=== PATIENT | female | born 1985 | race Caucasian/White ===

== ENCOUNTER 2021-06-02 13:06 | Outpatient (CLI) | payer SELFPAY ==
[2021-06-02 13:42] LABS: Basophils # 0.1 10^3/uL (0.0-0.1); Basophils % 0.7 %; Eosinophils # 0.2 10^3/uL (0.0-0.8); Eosinophils % 2.2 %; Hematocrit 35.7 % (37.0-47.0); Hemoglobin 10.3 g/dL (11.5-15.3); Lymphocytes # 2.1 10^3/uL (0.8-4.8); Lymphocytes % 29.2 %; Mean Corpuscular HGB Conc 28.9 g/dL (30.0-36.0); Mean Corpuscular Hemoglobin 24.9 pg (28.0-34.0); Mean Corpuscular Volume 86.2 fl (81-99); Mean Platelet Volume 9.6 fL (7.4-10.4); Monocytes # 0.3 10^3/uL (0.2-0.9); Monocytes % 4.5 %; Neutrophils # 4.54 10^3/uL (1.8-7.7); Neutrophils % 62.6 %; Nucleated Red Blood Cells % 0 %; Platelet Count 456 10^3/cmm (130-400); Red Blood Count 4.14 10^6/uL (4.1-5.3); Red Cell Distribution Width 17.2 % (12.1-15.1); White Blood Count 7.3 10^3/uL (4.0-10.0)
[2021-06-02 13:43] LABS: Reticulocyte % 1.7 % (0.5-2.0)
[2021-06-02 14:10] LABS: Alanine Aminotransferase 46 U/L (0-33); Albumin Level 4.4 g/dL (3.5-5.2); Alkaline Phosphatase 84 IU/L (35-105); Anion Gap 15.6 (5-19); Aspartate Amino Transferase 63 U/L (0-32); Blood Urea Nitrogen 7 mg/dL (6-20); Calcium 9.3 mg/dL (8.5-10.5); Carbon Dioxide 25 mmol/L (22-29); Chloride 101 mmol/L (98-107); Ferritin 21 ng/mL (15-150); Globulin 3.5 g/dL (1.3-4.6); Glomerular Filtration Rate 113.8 mL/min (90-130); Glucose 91 mg/dL (65-115); Iron 30 ug/dL (37-145); Osmolality Calculated 284 mOsm/kg (285-295); Potassium 3.6 mmol/L (3.5-5.1); Sodium 138 mmol/L (136-145); Total Bilirubin 0.5 mg/dL (0.15-1.2); Total Iron Binding Capacity 495 mcg/dl; Total Protein 7.9 g/dL (6.6-8.7); Unsaturated Iron Binding 465 ug/dL (112-347)
[2021-06-02 14:26] LABS: Vitamin B12 239 pg/mL (232-1245)
[2021-06-02 14:42] LABS: Folate Level 7.6 ng/mL (4.8-37.3)
[2021-06-02] MEDS: cyanocobalamin 1,000 mcg/mL SDV 1000 MCG SUBCUT (15:35)
--- NOTE | 2021-06-03 17:14 | ONC FU_ITS ---
Dr. Trujillo follow up note Patient: Johanny Meléndez Unit #: [id number]: 1985 Dicatated By: Alexander Trujillo M.D.Date of Visit:Jun 02, 2021 Onc Med Follow-up/Prog Note History of Present Illness: Ms. Johanny Meléndez, is a 35-year-old female with history of progressive generalized weakness and fatigue over the period of 6 months and eventually underwent evaluation by PMD and lab work-up done on April 21, 2021 showed white blood count 5.8 hemoglobin 9.1 hematocrit 31.6 platelets 372,000 with a normal differential anemia work-up including iron studies shows ferritin 8 ng/mL, iron saturation 3%, iron 17, TIBC 548, consistent with iron deficiency anemia, B12 level was 263 pg/mL. As per patient she was started on ferrous sulfate 325 mg p.o. daily, which she is tolerating well. She is also complaining of chronic diarrhea and early fullness due to that she lost some weight but denies any melena or hematochezia denies any hemoptysis or hematemesis, denies any jaundice, denies any night sweats, denies any recurrent fever as per patient her menses are very regular usually last 4 days a month. Denies any peripheral numbness Medications: ALPRAZolam 1 - 3 Tablet (of 0.25 mg) Oral daily PRN, Ferrous Sulfate 1 Tablet (of 325 (65 fe) mg) Oral daily, Venlafaxine HCl ER 1 Capsule (of 150 mg) Capsule SR 24 HR Oral daily, Vienva 1 Tablet (of 0.1-20 mg - mcg) Oral daily Allergies: No Known Allergies. Review of Systems: Review of Systems is not available for this patient. Vital Signs: Performed on Jun 02, 2021 14:30 Height - 67.00 in BP - 151/100 mm(hg) (HIGH) Performed on Jun 02, 2021 14:29 Height - 67 in Weight - 207.6 lbs (HIGH) BSA - 2.05 sq.m BMI - 32.51 (HIGH) Temperature - 96.3 F (LOW) Pulse - 93 /min Respiration - 16 /min BP - 164/106 mm(hg) (HIGH) O2 Sat - 99 % Pain - 0 Fatigue - 8 Performance Status: 0 - Fully active, able to carry on all predisease activities without restrictions. (ECOG) Physical Examination: ENMT - No mouth sores, no thrush, no jaundice, Respiratory - Lungs are clear to auscultation, Cardiovascular - Regular rate and rhythm of heart, Abdomen - Soft, bowel sounds present, Extremities - No visible edema. Lab/Imaging: Most recent lab results are not available for this patient. Impression: Iron deficiency anemia, etiology could be multifactorial including iron malabsorption or chronic blood loss, due to menstrual periods or chronic GI blood loss or nutritional as due to early fullness and chronic diarrhea. History of chronic diarrhea and dyspepsia Anxiety disorder Mild splenomegaly seen on CT scan of abdomen pelvis done on April 28, 2021, size was 14.9 cm Plan: Discussed with patient regarding her labs white blood count 7.3 hemoglobin 10.3 g compared to 9.1 g on April 21, 2021, hematocrit 35.7 platelets 456,000 CMP within normal limit except ALT 46 AST 63 and iron studies shows iron saturation 6%, iron 30, ferritin 21, TIBC 495, B12 239, reticulocyte count 1.7 compared to 3%, iron 17, ferritin 8, B12 263 on April 21, 2021 Clinically, patient is doing well with no new signs symptoms her follow-up CBC shows improvement in her iron deficiency while on oral iron, she is tolerating ferrous sulfate 325 mg p.o. daily well Etiology for her iron deficiency anemia could be multifactorial but most likely due to chronic blood loss probably due to moderately heavy menses other possibility could be chronic GI blood loss. At this point, we will recommend increasing ferrous sulfate dose to 2 tablets a day from 1 tablet a day. For better absorption she was advised to take it on empty stomach with orange juice. And we will refer her to gastroenterology for endoscopy evaluation to rule out chronic blood loss from GI tract and also to evaluate early fullness and chronic diarrhea. Her lab work-up shows B12 on the low side of normal range about 10% people with B12 level up to 400 may have hematological abnormality, will consider B12 supplement 1000 mcg IM weekly x4 days loading dose followed by monthly as maintenance. Mildly elevated transaminases, etiology unclear, will monitor She will return to clinic in 1 month with CBC,CMP, iron studies and B12 level, hopefully by that time she will have GI work-up completed too Mild splenomegaly seen on CT scan of abdomen pelvis done on April 28, 2021, could be incidental finding, will monitor and repeat sonogram or CT scan in 6 months with special attention to spleen. Signed By: Alexander Trujillo M.D. <<Signature on File>>
== END 2021-06-02 13:07 | disposition home or self-care (01) ==
PROVIDERS: PCP Family Medicine; Visit Provider Internal Medicine Hematology & Oncology
DX: D50.9 Iron deficiency anemia, unspecified (principal); F41.9 Anxiety disorder, unspecified; E53.8 Deficiency of other specified B group vitamins; R16.1 Splenomegaly, not elsewhere classified; R10.13 Epigastric pain; R19.7 Diarrhea, unspecified; Z79.899 Other long term (current) drug therapy
CPT/HCPCS: 36415; 80053; 82607; 82728; 82746; 83540; 83550; 85025; 85045; 96372; 99205; J3420

== ENCOUNTER 2021-06-08 13:53 | Outpatient (CLI) | payer SELFPAY ==
[2021-06-08] MEDS: cyanocobalamin 1,000 mcg/mL SDV 1000 MCG SUBCUT (14:35)
== END 2021-06-08 13:54 | disposition home or self-care (01) ==
LOC: ONCMED 13:56
PROVIDERS: PCP Family Medicine; Visit Provider Internal Medicine Hematology & Oncology
DX: E53.8 Deficiency of other specified B group vitamins (principal)
CPT/HCPCS: 96372; J3420

== ENCOUNTER 2021-06-26 16:50 | Emergency (ER) | payer SELFPAY ==
[2021-06-26 17:10] VITALS: BP 186/134; PULSE 95; RESP 16; TEMP 37; O2SAT 99; BMI 32.8
[2021-06-26 17:40] LABS: Basophils % 0.5 %; Eosinophils # 0.1 10^3/uL (0.0-0.8); Eosinophils % 1.6 %; Hematocrit 40.1 % (37.0-47.0); Hemoglobin 11.7 g/dL (11.5-15.3); Lymphocytes # 2.1 10^3/uL (0.8-4.8); Lymphocytes % 33.3 %; Mean Corpuscular HGB Conc 29.2 g/dL (30.0-36.0); Mean Corpuscular Hemoglobin 25.1 pg (28.0-34.0); Mean Corpuscular Volume 85.9 fl (81-99); Mean Platelet Volume 9.5 fL (7.4-10.4); Monocytes # 0.3 10^3/uL (0.2-0.9); Monocytes % 4.2 %; Neutrophils # 3.83 10^3/uL (1.8-7.7); Neutrophils % 60.1 %; Nucleated Red Blood Cells % 0 %; Platelet Count 388 10^3/cmm (130-400); Red Blood Count 4.67 10^6/uL (4.1-5.3); Red Cell Distribution Width 17.2 % (12.1-15.1); White Blood Count 6.4 10^3/uL (4.0-10.0)
[2021-06-26 17:43] VITALS: BP 200/136; PULSE 95; RESP 15; O2SAT 96
--- NOTE | 2021-06-26 17:44 | ED_ITS ---
HPI - General Adult General: Chief complaint: Extremity Injury, Upper Stated complaint: High bp, lft hand tingling, spots in vison Time Seen by Provider: 06/26/21 16:59 History of Present Illness: Patient is a 35-year-old female who presents the emergency room for evaluation of uncontrolled blood pressure. Patient says that at home she has been taking her blood pressure manually on both of her arms noticed that they have been consistently high in the last 4 days. Patient tells me that 3 weeks ago, she has had similarly elevated blood pressure across multiple days. Earlier today, patient ports mild chest pain lasting for few seconds with left arm numbness. Patient recently traveled home from [place] and has not been getting much sleep. Patient denies any history of smoking, any active or exertional chest pain or shortness of breath, pleuritic chest pain, or radiating chest pain towards the back. Patient denies any abdominal complaints, nausea/vomiting fever or chills. No other focal complaints. Patient also denies any focal neurological weakness, facial droop, slurring of speech, diplopia, amaurosis fugax, visual field deficit, or changes in her visions. Patient did report occasional transient spotters lasting for a few seconds in both of her eyes but denies any blurriness of vision over the last 4 days. Patient denies any eye pain, curtain fall sensation in the eyes, or persistent spotters. Onset: 30 minutes again of chest pain and L arm numbness Duration:10 minutes Location:home Severity:moderate Associated symptoms: Deny chest pain, dyspnea, nausea, rash, palpitations or vomiting Review of Systems Const: Denies: fever(s) or chills Eyes: Reports: other (+eye spotters); Denies: change in vision ENMT: Denies: mouth pain Card: Denies: chest pain or palpitations Resp: Denies: dyspnea or non-productive cough GI: Denies: abdominal pain, nausea, vomiting or diarrhea : Denies: dysuria Musc: Denies: extremity pain Skin/Breast: Denies: rash or new lesions Neuro: Denies: weakness in extremities Psych: Reports: other (Normal mood) Douglas/Lymph: Denies: easy bruising PFS ED PFSH: Medical History (Updated 06/26/21 @ 17:52 by Harjinder Liu MD) Hypertension Social History (Updated 06/26/21 @ 17:52 by Harjinder Liu MD) Smoking and tobacco status: never smoked Alcohol intake: never Substance/Drug Use: never Physical Exam Const: COMMON NORMALS: alert HENMT: COMMON NORMALS: atraumatic HEAD & SCALP: atraumatic MOUTH: moist mucous membranes not abnormal Eye: COMMON NORMALS: EOMs intact bilaterally and conjunctivae normal CONJUNCTIVA: Yes conjunctivae normal Neck/C-Spine: COMMON NORMALS: full ROM and supple Resp: COMMON NORMALS: normal respiratory effort and clear to auscultation bilaterally AUSCULTATION: clear to auscultation bilaterally Cardio: COMMON NORMALS: regular rate RATE: regular rate OTHER: 2+ radial pulses b/l GI: COMMON NORMALS: Soft to palpation and non-tender PALPATION: Yes Soft to palpation Extremity: COMMON NORMALS: full ROM Neuro: SENSORIUM/ORIENTATION: Yes alert MOTOR EXAM: No Abnormal motor strength present and Other motor observations present (no focal motor deficits) OTHER: Mental status? Awake, alert, and oriented to self, year, month, location, and situation.? Following simple axial and appendicular commands.? Has appropriate fund of knowledge, comprehension, and insight.? Able to recall and understands pertinent aspects of medical history and current treatment status.? ? Language? Speech is fluent without word-finding difficulties.? Intact naming, expression, spa receptionist, and repetition.? ? Cranial nerves? 2,3,4,6: PERRL, EOMI with no nystagmus. Unable to assess visual acuity since patient forgot to bring her glasses and was uanble to perform the pinhole exam 5: Intact sensation to light touch, symmetric? 7: Smile symmetrical, no facial droop.? 8: Hearing grossly intact.? 9,10: Normal palate movement.? 11: Normal strength in trapezius bilaterally 12: Tongue protrudes midline.? ? Motor examination? Normal bulk & tone. Strength as follows (R/L): Delts (5/5), Biceps (5/5), Triceps (5/5), Wrist ext (5/5), hip flexors (5/5), plantarflexors (5/5), dorsiflexors (5/5). ? Sensation? Light Touch: Grossly intact and equal in upper and lower extremities bilaterally? Romberg: Negative.? Distal joint position sense intact ? Coordination? [id number]-finger movements intact without dysmetria or past-pointing.? Rapid fingertaps: preserved amplitude without decriment.? No tremor, myoclonus or truncal ataxia.? ? Gait/stance? Steady, normal narrow base gait with appropriate arm swing and turning.? Psych: COMMON NORMALS: speech normal SPEECH: Yes normal speech MOOD & AFFECT: Yes euthymic mood Course Vital Signs: Vital signs: Vital Signs Temperature 98.6 F 06/26/21 17:10 Pulse Rate 89 06/26/21 19:46 Respiratory Rate 17 06/26/21 19:46 Blood Pressure 175/113 06/26/21 19:46 Pulse Oximetry 99 06/26/21 19:46 MDM - General Adult Medical Decision Making 35-year-old female with history of hypertension presenting to the emergency room with complaints of chest pain and left arm numbness lasting for 10 minutes. Patient's reports sharp pain. On exam, patient is 2+ radial pulse, did not have any persistent pain. X-ray chest did not show any focal finding. EKG is nonischemic. Initial blood pressure was noted to be elevated with diastolic greater than 135. Patient received 10 mg of amlodipine. Patient did not have any active chest pain in the emergency room. Cr WNL. I performed a bedside ultrasound which did not show any signs of retinal detachment or vitreous hemorrhage/detachment. EKG and troponin x2 with delta less than 5. Patient's blood pressure improved with amlodipine. Given the fact the patient did not have any chest pressure with transient single episode sharp chest pain with arm numbness, do not suspect ACS. In addition, I have no suspicion for dissection given normal x-ray, 2+ radial pulses bilaterally, or tearing chest pain. Given the fact the patient has no retinal detachment on bedsulse, do not suspect acute occular pathologies currently. If patient has persistence in spots/curtain fall sensation/monocular blindeness, patient agrees to follow closely for a reassessment. Patient is given strict precaution for any signs of amaurosis fugax, retinal detachment, or any other concerns for visual changes. Patient to follow-up with primary care provider for further evaluation of her blood pressure and further adjustment. Rx amlodipine 5mg daily for elevated BP Disposition: Discharge. Patient counseled regarding diagnostic impression, treatment plan. Patient given ED strict return precautions to return for cont inuation, worsening, or development of new symptoms. Instructed to f/u w/ PCP regarding symptoms today. Patient verbalized understanding. Lab Data : 06/26/21 17:36 06/26/21 17:36 Laboratory Results WBC 6.4 10^3/uL (4.0-10.0) 06/26/21 17:36 RBC 4.67 10^6/uL (4.1-5.3) 06/26/21 17:36 Hgb 11.7 g/dL (11.5-15.3) 06/26/21 17:36 Hct 40.1 % (37.0-47.0) 06/26/21 17:36 MCV 85.9 fl (81-99) 06/26/21 17: MCH 25.1 pg (28.0-34.0) L 06/26/21 17:36 MCHC 29.2 g/dL (30.0-36.0) L 06/26/21 17: RDW 17.2 % (12.1-15.1) H 06/26/21 17:36 Plt Count 388 10^3/cmm (130-400) 06/26/21 17:36 MPV 9.5 fL (7.4-10.4) 06/26/21 17:36 Neut % (Auto) 60.1 % 06/26/21 17:36 Lymph % (Auto) 33.3 % 06/26/21 17:36 [place] % (Auto) 4.2 % 06/26/21 17:36 Eos % (Auto) 1.6 % 06/26/21 17:36 Baso % (Auto) 0.5 % 06/26/21 17:36 Neut # (Auto) 3.83 10^3/uL (1.8-7.7) 06/26/21 17:36 Lymph # (Auto) 2.1 10^3/uL (0.8-4.8) 06/26/21 17:36 [place] # (Auto) 0.3 10^3/uL (0.2-0.9) 06/26/21 17:36 Eos # (Auto) 0.1 10^3/uL (0.0-0.8) 06/26/21 17:36 Baso # (Auto) 0.0 10^3/uL (0.0-0.1) 06/26/21 17:36 Nucleated RBC % (auto) 0 % 06/26/21 17:36 Nucleated RBCs # 0.0 /100WBC 06/26/21 17:36 Sodium 138 mmol/L (136-145) 06/26/21 17:36 Potassium 3.7 mmol/L (3.5-5.1) 06/26/21 17:36 Chloride 101 mmol/L (98-107) 06/26/21 17:36 Carbon Dioxide 22 mmol/L (22-29) 06/26/21 17:36 Anion Gap 18.7 (5-19) 06/26/21 17:36 BUN 5 mg/dL (6-20) L 06/26/21 17:36 Creatinine 0.6 mg/dL (0.5-0.9) 06/26/21 17:36 GFR Calculation 113.8 mL/min (90-130) 06/26/21 17:36 Glucose 87 mg/dL (65-115) 06/26/21 17:36 Calculated Osmolality 283 mOsm/kg (285-295) L 06/26/21 17:36 Calcium 9.8 mg/dL (8.5-10.5) 06/26/21 17:36 Troponin T Baseline 6 ng/L (0-10) 06/26/21 17:36 Troponin T 120 Minute 6.00 ng/L (0-10) 06/26/21 19:20 Delta Troponin T Not Reportable 06/26/21 19:20 Discharge Plan Discharge Patient Disposition: Home Clinical Impression: Elevated blood pressure reading Condition: Stable Prescriptions: New amlodipine 5 mg tablet 5 mg PO DAILY 20 Days Qty: 20 0RF No Action alprazolam 0.25 mg tablet 0.25 mg PO PRN PRN (Reason: Anxiety) 0RF venlafaxine 150 mg capsule,extended release 24hr 150 mg PO DAILY 0RF levonorgestrel-ethinyl estrad [Vienva] 0.1-20 mg-mcg tablet 1 tab PO DAILY 0RF ferrous sulfate 325 mg (65 mg iron) Tablet 325 mg PO BID 0RF Discharge Orders: Discharge ED (Routine); Ordered 06/26/21 Ordered By: Harjinder Liu Referrals: Karl Harris DO [Primary Care Provider] - Discharge Diet: Advance as tolerated Discharge Activity: Increase activity as tolerated Patient Instructions: Hypertension (ED) Activity Restrictions/Additional Instructions: You need to follow-up with your primary care provider for further adjustment of your blood pressure. Your blood pressure puts you at risk for developing strokes and heart attack. Therefore it is very important for you to follow-up with this number to see if the numbers improve gradually. Because blood pressure adjustment is a gradual process, were not able to change it in 1 visit. Therefore please log your blood pressure and follow-up with your primary care provider in the next 72 hours for further adjustment of your blood pressures. Coding Level of Care Code ED Travel Registered Nurse Icu for [employer] Fwd Exam Comprehensive
--- NOTE | 2021-06-26 17:45 | ECG_ITS ---
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 Measurements Intervals Turner Rate: 78 P: 8 IN: 130 QRS: -6 QRSD: 88 T: 14 QT: 391 QTc: 447 Interpretive Statements SINUS RHYTHM VOLTAGE CRITERIA FOR LVH [MEETS CRITERIA IN ONE OF: R(aVL), S(V1), R(V5), R(V5/V6)+S(V1)] No previous ECG available for comparison Electronically Signed On 06-27-2021 9:05:52 CDT by Mike Arias M.D. [email or web address] [email or web address] [email or web address]/[email or web address]/NU/[id number] f
[2021-06-26] MEDS: amlodipine 10 mg Tablet PO (17:54)
[2021-06-26 18:04] LABS: Anion Gap 18.7 (5-19); Blood Urea Nitrogen 5 mg/dL (6-20); Calcium 9.8 mg/dL (8.5-10.5); Carbon Dioxide 22 mmol/L (22-29); Chloride 101 mmol/L (98-107); Glomerular Filtration Rate 113.8 mL/min (90-130); Glucose 87 mg/dL (65-115); Osmolality Calculated 283 mOsm/kg (285-295); Potassium 3.7 mmol/L (3.5-5.1); Sodium 138 mmol/L (136-145)
[2021-06-26 18:05] LABS: Troponin(5th) Baseline 6 ng/L (0-10)
[2021-06-26 19:46] VITALS: BP 175/113; PULSE 89; RESP 17; O2SAT 99
== END 2021-06-26 20:16 | disposition home or self-care (01) ==
PROVIDERS: Emergency Provider Emergency Medicine; PCP Family Medicine
DX: I10 Essential (primary) hypertension (principal)
CPT/HCPCS: 36415; 80048; 84484; 85025; 93005; 99283

== ENCOUNTER 2021-08-06 06:32 | Day surgery (SDC) | payer SELFPAY ==
[2021-08-03 10:45] VITALS: BMI 32.8
[2021-08-06 06:45] VITALS: BP 138/99; PULSE 110; RESP 18; TEMP 36.6; O2SAT 100
[2021-08-06] MEDS: sodium chloride 0.9% 1,000 ML 30 ML IV (06:58)
--- NOTE | 2021-08-06 07:08 | ANES.PREANE2 ---
Pre-Anesthetic Assessment Height/Weight: Height 1.7 m Weight 95.254 kg Temp Pulse Resp BP Pulse Ox 97.8 F 110 H 18 138/99 100 08/06/21 06:45 08/06/21 06:45 08/06/21 06:45 08/06/21 06:45 08/06/21 06:45 Preop Diagnosis: Bleeding per rectum Operation Date: 08/06/21 08:00 Proposed Procedures p EGD [id number]/[id number](Not Applicable) - Zhang Mendoza MD s Colonoscopy(Not Applicable) - Zhang Mendoza MD Was Beta Maria R taken within 24 hours: Yes Was Clonidine taken within 24 hours: N/A Last intake: Intake Last Liquid Date 08/05/21 Last Liquid Time 22:00 Last Solid Date 08/04/21 Last Solid Time 23:00 Social No alcohol and No tobacco Exam alert, oriented x 3, clear to auscultation bilaterally and regular rate & rhythm Airway Submandibular: within normal limits Cervical ROM: within normal limits Mallampati: Class II Dentition: full History/ROS No significant history except as noted and No significant complaints Pulmonary None reported CV/HEM Hypertension None reported Hepatic None reported GI None reported Metabolic None reported Musc/skel None reported Neuropsych Anxiety Anesthetic Plan ASA status: 2 Anesthesia: Anesthesia Evaluation and MAC Risk of > 500 ml blood loss (7ml/kg in children): No Medications/Allergies Home Medications Medication Instructions Recorded Confirmed Last Taken Type alprazolam 0.25 mg tablet 0.25 mg PO PRN PRN 06/25/21 08/06/21 08/06/21 05:30 History levonorgestrel-ethinyl estradiol 1 tab PO DAILY 06/25/21 08/06/21 08/05/21 History 0.1 mg-20 mcg tablet (Vienva) venlafaxine 150 mg 150 mg PO DAILY 06/25/21 08/06/21 08/05/21 History capsule,extended release 24 hr ferrous sulfate 325 mg (65 mg 325 mg PO BID 06/26/21 08/06/21 08/05/21 History iron) tablet Allergies Allergy/AdvReac Type Severity Reaction Status Date / Time No Known Allergies Allergy Verified 08/03/21 10:42 Current Medications Generic Name Dose Route Start Last Admin Trade Name Freq PRN Reason Stop Dose Admin Sodium Chloride 1,000 mls @ 30 mls/hr 08/06/21 06:45 08/06/21 06:58 Sodium Chloride 0.9% IV 08/07/21 06:44 30 mls/hr .Q24H CEDRIC Administration PFSH Anesthesia Medical History (Updated 07/04/21 @ 00:00 by ) Hypertension Social History (Updated 06/26/21 @ 17:52 by Harjinder Liu MD) Smoking and tobacco status: never smoked Alcohol intake: never Female Reproductive History Date of last menstrual period: 07/28/21 Data Anesthesia Cardiac Studies: No Data to Display
[2021-08-06 07:13] LABS: OR HCG Qualitative Urine Negative (Negative)
--- NOTE | 2021-08-06 08:49 | W.PM.OPSFHP ---
Same Day Surgery H&P Indication for Procedure/HPI DATE OF PROCEDURE: August 06, 2021 CHIEF COMPLAINT/INDICATIONFOR SURGICAL PROCEDURE: Bleeding per rectum PREOP DIAGNOSIS: Bleeding per rectum PLANNED PROCEDURE: Operation Date: 08/06/21 08:00 Proposed Procedures p EGD 41689/d50.9/[id number](Not Applicable) - Zhang Mendoza MD s Colonoscopy(Not Applicable) - Zhang Mendoza MD 06/25/2021 this is a pleasant 35 years old female patient has been having progressive generalized weakness and fatigue over the.? Of 6 months or so patient was found to have a hemoglobin of 9.1, hematocrit 31.6 and platelet count 3 72,000.? And patient was diagnosed ultimately with iron deficiency anemia.? Could be attributed to chronic GI blood loss, patient denies heavy menses and has been having some blood in stool she is considering that could be related to her hemorrhoids.? Patient was referred to my practice for further evaluation for diagnostic EGD and colonoscopy.? Per Dr. Trujillo's note patient undergone a CT scan of the abdomen pelvis back in April 2021 and showed mild splenomegaly. The patient describes change in bowel habits more towards diarrhea yet alternating with constipation 08/06/2021 Patient comes today for diagnostic EGD and colonoscopy ROS All systems have been reviewed negative except as for the above or per problem list. Medications/Allergies* Home Medications Medication Instructions Recorded Confirmed Type alprazolam 0.25 mg tablet 0.25 mg PO PRN PRN 06/25/21 08/06/21 History levonorgestrel-ethinyl estradiol 1 tab PO DAILY 06/25/21 08/06/21 History 0.1 mg-20 mcg tablet (Vienva) venlafaxine 150 mg 150 mg PO DAILY 06/25/21 08/06/21 History capsule,extended release 24 hr ferrous sulfate 325 mg (65 mg 325 mg PO BID 06/26/21 08/06/21 History iron) tablet Allergies/Adverse Reactions Allergy/AdvReac Type Severity Reaction Status Date / Time No Known Allergies Allergy Verified 08/06/21 08:50 Current Medications: Generic Name Dose Route Start Last Admin Trade Name Freq PRN Reason Stop Dose Admin Sodium Chloride 1,000 mls @ 30 mls/hr 08/06/21 06:45 08/06/21 06:58 Sodium Chloride 0.9% IV 08/07/21 06:44 30 mls/hr .Q24H CEDRIC Administration Pertinent History/Comorbid Conditions* Medical History (Updated 07/04/21 @ 00:00 by ) Hypertension Social History Smoking and tobacco status: never smoked Alcohol intake: never Pertinent Exam Findings alert, oriented x 3, regular rate & rhythm and procedure specific exam findings (Abdominal examination nontender nondistended soft) Recommendations Surgery/Procedure today (Diagnostic EGD and colonoscopy) Coding Level of Care Code Acute Project Development Director for g Dipak
[2021-08-06 09:21] VITALS: BP 104/76; PULSE 75; RESP 20; TEMP 36.6; O2SAT 99
[2021-08-06 09:31] VITALS: BP 122/89; PULSE 104; RESP 18; O2SAT 98
[2021-08-06 09:42] VITALS: BP 93/71; PULSE 94; RESP 18; O2SAT 94
== END 2021-08-06 10:11 | disposition home or self-care (01) ==
PROVIDERS: Anesthesiology; PCP Family Medicine; Visit Provider Surgery
PROC: 0DJ08ZZ Inspection of Upper Intestinal Tract, Via Natural or Artificial Opening Endoscopic (ICD-10-PCS; CPT 43235; principal; 2021-08-06 08:00)
PROC: 0DJD8ZZ Inspection of Lower Intestinal Tract, Via Natural or Artificial Opening Endoscopic (ICD-10-PCS; CPT 45378; 2021-08-06 08:00)
DX: K62.5 Hemorrhage of anus and rectum (principal); I10 Essential (primary) hypertension; K29.70 Gastritis, unspecified, without bleeding
CPT/HCPCS: 43235; 45378; 82274; 83630; 84703; 87493; 87506; J2704; J7030

== ENCOUNTER → 2021-12-31 17:13 | Outpatient (BNVA) | payer SELFPAY | PROVIDERS: PCP Family Medicine; Visit Provider Family Medicine | DX: N39.0 Urinary tract infection, site not specified (principal) | CPT/HCPCS: 81000; 87077; 87086; 87184 ==

== ENCOUNTER 2022-09-20 08:00 | Emergency (ER) | payer SELFPAY ==
[2022-09-20 08:08] VITALS: BP 182/113; PULSE 98; RESP 16; TEMP 37.3; O2SAT 99
--- NOTE | 2022-09-20 08:12 | W.ED.BACK ---
HPI - Back Pain/Injury General: Chief Complaint: Back Pain/Injury Stated Complaint: Lower back injury Time Seen by Provider: 09/20/22 08:12 History of Present Illness: Patient is a 36-year-old female comes to the ED with low back pain. Approximately 9 days ago patient was in her hammock swing at home and it fell. She landed on her low back and tailbone area. She has been having pain in that area that is gotten worse over the past 9 days. She went and saw her chiropractor last week and he did some manipulations and it did not help. She rates her pain currently a 7 out of 10 pain is located lower back and tailbone region and pain radiates down the right thigh. Denies any cauda equina symptoms. Over the past couple days patient does state that she feels like she has to urinate more frequently but then does not actually urinate much. Associated symptoms: Deny abdominal pain, chills, dysuria, fatigue, fever(s), hematuria, nausea or vomiting Review of Systems Const: Denies: fever(s), chills or fatigue Eyes: Denies: change in vision or eye discomfort ENMT: Denies: throat pain, odynophagia, nasal discharge or nasal congestion Card: Denies: chest pain, palpitations, edema, swelling of feet/ankles, dyspnea on exertion or orthopnea Resp: Denies: dyspnea, productive cough or non-productive cough GI: Denies: abdominal pain, nausea, vomiting, diarrhea, constipation or hematochezia : Reports: urinary frequency; Denies: flank pain, dysuria or hematuria Musc: Reports: back pain; Denies: neck pain or extremity swelling Skin/Breast: Denies: rash or new lesions Neuro: Denies: headache(s), numbness in extremities or weakness in extremities PFS ED PFSH: Medical History Hypertension Social History Smoking and tobacco status: never smoked Alcohol intake: never Substance/Drug Use: never Physical Exam Const: COMMON NORMALS: patient oriented x3 HENMT: COMMON NORMALS: normocephalic HEAD & SCALP: normocephalic MOUTH: Normal oral and palatal mucosa present THROAT: posterior oropharynx normal and uvula midline Neck/C-Spine: COMMON NORMALS: supple GENERAL: Yes normal visual inspection Resp: COMMON NORMALS: normal respiratory effort, No retractions, No use of accessory muscles and clear to auscultation bilaterally AUSCULTATION: clear to auscultation bilaterally Cardio: COMMON NORMALS: regular rate, regular rhythm, S1 normal heart sound present, S2 normal heart sound present, No gallops present (Cardio), No clicks present (Cardio), No murmurs present (Cardio) and Peripheral pulses 2+ throughout RATE: regular rate RHYTHM: regular rhythm HEART SOUNDS: S1 normal heart sound present and S2 normal heart sound present PERIPHERAL PULSES: Peripheral pulses 2+ throughout GI: COMMON NORMALS: Normal to inspection, nondistended, normoactive bowel sounds present, Soft to palpation, non-tender and no masses PALPATION: Yes Soft to palpation : COMMON NORMALS: Yes no CVA tenderness BLADDER/KIDNEY EXAM: Yes no CVA tenderness Back/Pelvis: COMMON NORMALS: no CVA tenderness LUMBAR SPINE/LOWER BACK: Yes lumbar spinal tenderness Lumbar spinal tenderness location: L4 and L5 and Yes paraspinal muscle tenderness Lumbar paraspinal muscle tenderness: bilateral Extremity: COMMON NORMALS: normal to inspection Neuro: COMMON NORMALS: patient oriented x3 GAIT: Yes Normal gait present Skin: GENERAL SKIN EXAM: dry skin Course Vital Signs: Vital signs: Vital Signs Temperature 99.1 F 09/20/22 08:08 Pulse Rate 75 09/20/22 10:17 Respiratory Rate 16 09/20/22 08:08 Blood Pressure 135/97 09/20/22 10:17 Pulse Oximetry 97 09/20/22 10:17 Oxygen Delivery Me thod Room Air 09/20/22 09:13 MDM - Back Pain/Injury Medical Decision Making Patient is a 36-year-old female comes to the ED with low back pain. Approximately 9 days ago patient was in her hammock swing at home and it fell. She landed on her low back and tailbone area. She has been having pain in that area that is gotten worse over the past 9 days. She went and saw her chiropractor last week and he did some manipulations and it did not help. She rates her pain currently a 7 out of 10 pain is located lower back and tailbone region and pain radiates down the right thigh. Denies any cauda equina symptoms. Over the past couple days patient does state that she feels like she has to urinate more frequently but then does not actually urinate much. Vitals are stable. UA shows signs of UTI. Sacrum and coccyx x-ray showed no acute fractures. Lumbar spine x-rays show some disc narrowing at L5-S1. She was given a dose of pain med, steroid and muscle relaxer here in the ED. She was stable for discharge home and diagnosed with lumbar radiculopathy and UTI. She was sent home with a prescription for an antibiotic, NSAID, muscle relaxer and steroid Dosepak. Told to follow-up with her PCP in the next week for reevaluation. Return ED precautions given. Patient understood and agreed with plan. Labs Radiology Impressions Lumbar Spine X-Ray 09/20/22 08:34 IMPRESSION: Disc narrowing at L5-S1 as noted. Sacrum and Coccyx X-Ray 09/20/22 08:34 IMPRESSION: No acute change. Laboratory Results Urine Color Yellow (Yellow) 09/20/22 09:11 Urine Appearance Cloudy (CLEAR) A 09/20/22 09:11 Urine pH 6.5 (5-7) 09/20/22 09:11 Ur Specific [place] 1.015 (1.005-1.030) 09/20/22 09:11 Urine Protein Trace (Negative) 09/20/22 09:11 Urine Glucose (UA) Norm (Normal) 09/20/22 09:11 Urine Ketones 1+ (Negative) H 09/20/22 09:11 Urine Blood 2+ (Negative) H 09/20/22 09:11 Urine Nitrate Negative (Negative) 09/20/22 09:11 Urine Bilirubin Neg (Negative) 09/20/22 09:11 Urine Urobilinogen 1 mg/dL (Negative) H 09/20/22 09:11 Ur Leukocyte Esterase 2+ (Negative) H 09/20/22 09:11 Urine RBC 0-4 /hpf (0-2) H 09/20/22 09:11 Urine WBC 25-40 /hpf (0-5) H 09/20/22 09:11 Ur Squamous Epith Cells Too numerous to cnt /hpf (0-5) H 09/20/22 09:11 Amorphous Sediment Not Reportable 09/20/22 09:11 Urine Bacteria 3+ /hpf (NONE) H 09/20/22 09:11 Urine Mucus Trace /hpf 09/20/22 09:11 Discharge Plan Discharge Patient Disposition: Home Clinical Impression: Lumbar radiculopathy UTI (urinary tract infection) Qualifiers: Urinary tract infection type: acute cystitis Hematuria presence: with hematuria Qualified Code(s): N30.01 - Acute cystitis with hematuria Condition: Stable Prescriptions: New Medrol (Melecio) 4 mg tablets,dose pack See Rx Instructions .ROUTE .COMPLEX Qty: 21 0RF Rx Instructions: orally per package directions Naprosyn 500 mg tablet 500 mg PO BID PRN (Reason: pain) Qty: 20 0RF cyclobenzaprine 10 mg tablet 10 mg PO BID PRN (Reason: muscle spasm) Qty: 20 0RF Bactrim DS 800-160 mg tablet 1 tab PO BID 3 Days Qty: 6 0RF No Action alprazolam 0.25 mg tablet 0.25 mg PO TID PRN (Reason: Anxiety) Qty: 90 5RF venlafaxine 150 mg capsule,extended release 24hr 150 mg PO DAILY Qty: 90 1RF amlodipine 5 mg tablet 5 mg PO DAILY 90 Days Qty: 90 3RF losartan 25 mg tablet 25 mg PO DAILY Qty: 90 3RF Slynd 4 mg (28) Tablet 1 tab PO DAILY Discharge Orders: Discharge ED (Routine); Ordered 09/20/22 Ordered By: Moshe Schulte Referrals: Karl Harris, [Primary Care Provider] - Discharge Diet: Regular Discharge Activity: Increase activity as tolerated Patient Instructions: Lumbar Radiculopathy (ED) Activity Restrictions/Additional Instructions: Follow-up with medical provider as directed. Take medications as prescribed. Return to the ER or your medical provider if condition worsens. Please read and understand discharge instructions. Thank you for choosing [facility] for your healthcare needs today. Please realize this is an emergency room and that we are providing you with a medical screening exam and this may not be complete and all inclusive of all the testing and or work up that you may need to determine your ailment or severity of your illness. It is very important that you follow up as instructed or that you return to the Emergency Department should you have concerns or if your condition changes or worsens in any way. Coding Level of Care Code ED Reflector Driller And Deburrer for Antoine Quesada
--- NOTE | 2022-09-20 08:34 | XR_ITS ---
WS: [id number] EXAMINATION: XR lumbar spine 2-3V* [id number] L-SPINE : 3 views REASON FOR EXAM: fall injury with lumbar pain COMPARISON: None available. ORDER DATE: 09/20/2022 8:41 AM FINDINGS: The lumbar vertebral bodies and the disc spaces are normal in width except for 50% narrowing of the L 5-S1 disc space. In the lumbar vertebra, there is no evidence of compression deformities or spondylo listhesis. Previous cholecystectomy. XR/XR lumbar spine 2-3V* [id number] IMPRESSION: Disc narrowing at L5-S1 as noted.
--- NOTE | 2022-09-20 08:34 | XR_ITS ---
WS: [id number] EXAMINATION: XR sacrum coccyx min 2V 78712 REASON FOR EXAM: fall injury with tail bone pain ORDER DATE: 09/20/2022 8:41 AM FINDINGS:: There is no evidence of acute fracture or displacement of the sacrum or coccygeal structur es. XR/XR sacrum coccyx min 2V [id number] IMPRESSION: No acute change.
[2022-09-20] MEDS: dexamethasone 10 mg/mL INJ IM (08:43)
[2022-09-20] MEDS: ketorolac 60 mg/2 mL INJ IM (08:43)
[2022-09-20] MEDS: methocarbamol 750 mg Tablet PO (08:43)
[2022-09-20 09:13] VITALS: BP 141/95; PULSE 78; O2SAT 97
[2022-09-20 09:42] LABS: Bilirubin Urine Neg (Negative); Blood Urine 2+ (Negative); Glucose Urine UA Norm (Normal); Ketones Urine 1+ (Negative); Nitrate Urine Negative (Negative); Protein Urine Trace (Negative); Specific Gravity, Urine 1.015 (1.005-1.030); Urine Appearance Cloudy (CLEAR); Urine Color Yellow (Yellow); pH Urine 6.5 (5-7)
[2022-09-20 09:43] LABS: Add Urine Culture? No; Add Urine Microscopic? YES; Bacteria Urine 3+ /hpf; Leukocyte Esterase Urine 2+ (Negative); Mucus Urine TRACE /hpf; RBC Urine 0-4 /hpf (0-2); Squamous Epithelial Cell Urine TOO NUMEROUS TO CNT /hpf (0-5); Urobilinogen Urine 1 mg/dL (Negative); WBC Urine 25-40 /hpf (0-5)
[2022-09-20] MEDS: HYDROcodone-acetaminophen 7.5-325 mg Tablet 1 TAB PO (10:01)
[2022-09-20 10:17] VITALS: BP 135/97; PULSE 75; O2SAT 97
== END 2022-09-20 10:18 | disposition home or self-care (01) ==
PROVIDERS: Emergency Provider Physician Assistant; PCP Family Medicine
DX: M54.16 Radiculopathy, lumbar region (principal); N30.01 Acute cystitis with hematuria
CPT/HCPCS: 72100; 72220; 81001; 96372; 99284; J1100; J1885

== ENCOUNTER → 2022-12-21 08:50 | Outpatient (BNVA) | payer SELFPAY | PROVIDERS: PCP Family Medicine; Visit Provider Family Medicine | DX: D50.9 Iron deficiency anemia, unspecified (principal); K62.5 Hemorrhage of anus and rectum; R40.0 Somnolence; E03.9 Hypothyroidism, unspecified; M54.9 Dorsalgia, unspecified | CPT/HCPCS: 80053; 82607; 84443; 85025 ==

== ENCOUNTER → 2023-09-14 08:04 | Outpatient (BNVA) | payer BC, SELFPAY | PROVIDERS: PCP Family Medicine; Visit Provider Nurse Practitioner Women's Health | DX: N92.6 Irregular menstruation, unspecified (principal); Z34.90 Encounter for supervision of normal pregnancy, unspecified, unspecified trimester | CPT/HCPCS: 81025; 83036; 84439; 84443; 84702; 86850; 86900 ==

== ENCOUNTER → 2023-09-21 10:17 | Outpatient (BNVA) | payer BC, SELFPAY | PROVIDERS: PCP Family Medicine; Visit Provider Nurse Practitioner Women's Health | DX: Z34.90 Encounter for supervision of normal pregnancy, unspecified, unspecified trimester (principal) | CPT/HCPCS: 76801 ==

== ENCOUNTER → 2023-09-27 07:52 | Outpatient (BNVA) | payer BC, SELFPAY | PROVIDERS: PCP Family Medicine; Visit Provider Nurse Practitioner Women's Health | DX: Z34.90 Encounter for supervision of normal pregnancy, unspecified, unspecified trimester (principal) | CPT/HCPCS: 80053; 80307; 82950; 84315; 85025; 86592; 86762; 86803; 86850; 86900; 87086; 87340; 87806 ==

== ENCOUNTER → 2023-09-30 08:05 | Outpatient (BNVA) | payer BC, SELFPAY | PROVIDERS: PCP Family Medicine; Visit Provider Obstetrics & Gynecology | DX: Z34.90 Encounter for supervision of normal pregnancy, unspecified, unspecified trimester (principal) | CPT/HCPCS: 82951; 82952; 84315; 87491; 87591; 87624 ==

== ENCOUNTER → 2023-11-01 08:07 | Outpatient (BNVA) | payer BC, SELFPAY | PROVIDERS: PCP Family Medicine; Visit Provider Nurse Practitioner Women's Health | DX: Z34.90 Encounter for supervision of normal pregnancy, unspecified, unspecified trimester (principal); O09.899 Supervision of other high risk pregnancies, unspecified trimester; O99.280 Endocrine, nutritional and metabolic diseases complicating pregnancy, unspecified trimester; E03.9 Hypothyroidism, unspecified | CPT/HCPCS: 82105; 84315; 84443 ==

== ENCOUNTER 2023-11-11 07:47 | Outpatient (CLI) | payer BC, SELFPAY ==
[2023-11-11 09:13] LABS: Total Volume, Urine 1800 mL
[2023-11-11 09:27] LABS: Urine Total Protein 5.9 mg/dL (0-150); Urine Total Protein 24 Hour 106.2 mg/24hr (0-150)
== END 2023-11-11 07:48 | disposition home or self-care (01) ==
PROVIDERS: Nurse Practitioner Women's Health; PCP Family Medicine; Visit Provider Internal Medicine
DX: I15.9 Secondary hypertension, unspecified (principal)
CPT/HCPCS: 84156

== ENCOUNTER → 2023-12-23 07:53 | Outpatient (BNVA) | payer BC, MEDICAID, SELFPAY | PROVIDERS: PCP Family Medicine; Visit Provider Nurse Practitioner Women's Health | DX: O09.899 Supervision of other high risk pregnancies, unspecified trimester (principal) | CPT/HCPCS: 82951; 82952; 84315 ==

== ENCOUNTER 2024-01-09 15:25 | Outpatient (CLI) | payer BC, MEDICAID, SELFPAY ==
[2024-01-09 15:44] VITALS: BP 121/78; PULSE 85
--- NOTE | 2024-01-09 16:01 | USR_ITS ---
PROCEDURE INFORMATION: Exam: US Biophysical Profile Without Non-Stress Test Exam date and time: 01/09/2024 4:54 PM Age: 38 years old Clinical indication: Other: Vaginal bleeding; ; Additional info: Vaginal bleeding, evaluate for placental abruption, cervical length, bpp TECHNIQUE: Imaging protocol: US biophysical profile without non-stress testing. COMPARISON: US OB <= 14 weeks fetus [id number] 09/21/2023 10:20 AM FINDINGS: heart rate: 165 bpm Amniotic fluid index: VIVIENNE is 10.12 cm. BIOPHYSICAL PROFILE: breathing (BPP): 2 /2 gross body movement (BPP): 2 /2 tone (BPP): 2 /2 Amniotic fluid (BPP): 2 /2 Biophysical profile score (BPP): 8 /8 MATERNAL ANATOMY: Cervix: Cervical length measures 4.2 cm. The cervix is closed. Other findings: Incidentally noted physiologic [place] contractions. US/US OB BPP wo NST 97150 IMPRESSION: Biophysical profile score is 8 out of 8.
[2024-01-09 16:02] VITALS: BMI 36.5
[2024-01-09 16:04] VITALS: BP 115/68; PULSE 82
[2024-01-09 16:24] VITALS: BP 112/73; PULSE 82
[2024-01-09 17:47] LABS: Bilirubin Urine Negative (Negative); Blood Urine Trace (Negative); Glucose Urine UA Negative (Normal); Ketones Urine Negative (Negative); Leukocyte Esterase Urine Negative (Negative); Nitrate Urine Negative (Negative); Protein Urine Negative (Negative); Specific Gravity, Urine 1.011 (1.005-1.030); Urine Appearance Clear (CLEAR); pH Urine 6.5 (5-7)
[2024-01-09 17:53] LABS: Add Urine Microscopic? YES; Bacteria Urine None Seen /hpf; Hyaline Casts Urine 0-4 /lpf; RBC Urine 0-2 /hpf (0-2); Squamous Epithelial Cell Urine 0-5 /hpf (0-5); WBC Urine 0-5 /hpf (0-5)
--- NOTE | 2024-01-09 17:54 | P.TNLD_ITS ---
OB L&D Triage Visit Information: Date of evaluation: 01/09/24 Comments/Additional reason(s) for visit: 38-year-old female G4, P3 at 26.3 weeks gestation with JESSICA 04/13/2024 seen on labor and delivery in triage with complaints of vaginal bleeding after urination. Patient states she wiped and noticed bright red blood on her tissue. She denied pelvic pain or abdominal cramping. She admitted to good movement. Several hours later she again went to the restroom and noted no blood. Patient presented to labor and delivery triage and again there has been no repeat of her vaginal bleeding. Patient was questioned regarding sexual intercourse, she states she had sex 3 days ago but without bleeding. OB ultrasound?confirms 26 weeks gestation with no evidence of placenta previa or abruption. BPP 11/09 NST?reassuring. After OB ultrasound patient was reassured since she has had no other episode of bleeding. I encouraged her to rest today and avoid strenuous activities. Patient is encouraged to follow-up at the OB clinic in 1 week. I informed her to return to labor and delivery if the bleeding returns. She verbalizes understanding and agrees. Evaluation: Baseline heart rate: 140 monitor accelerations: Present 15x15 monitor decelerations: None Laboratory results: Laboratory Tests 01/09/24 17:35 Amorphous Sediment Not Reportable Vital signs: Vital Signs - 24 hr 01/09/24 15:44 01/09/24 16:04 01/09/24 16:04 Pulse Rate 85 82 Blood Pressure 121/78 115/68 01/09/24 16:24 01/09/24 16:24 Pulse Rate 82 Blood Pressure 112/73 Care JESSICA Calculator Estimated Delivery Date Method Current WG Current Estimate 04/13/24 Ultrasound #1 26w 3d Other Estimates 05/02/24 LMP (Uncertain) 23w 5d Specific Issues/Plans * CHRONIC HTN; stopped all meds; 24 hr urine after neg urine culture * OBESITY;early GCT failed; 3 hour pass; rpt 3 hour at 24wk * ANXIETY/DEPRESSION;managed with effexor * HYPOTHYROIDISM;started levo 25mc at 10wks * ELDERLY; 37 at time of delivery * Abnormal NIPT--see mfm Final Diagnosis Final Diagnosis (1) 26 weeks gestation of : Plan: Will discharge patient to home after UA has resulted. Patient encouraged to have no strenuous activities or sexual intercourse. Patient encouraged to follow-up with Dr. Serna in 2 to 3 days. Patient advised to return to labor and delivery if vaginal bleeding reoccurs. Status: Acute Code(s): Z3A.26 - 26 weeks gestation of (2) Advanced maternal age (AMA) in : Status: Acute (3) Abnormal glucose tolerance affecting , antepartum: Status: Acute Code(s): O99.810 - Abnormal glucose complicating (4) Abnormal genetic test during : Status: Acute Code(s): O28.5 - Abnormal chromosomal and genetic finding on screening of mother (5) Supervision of other high risk , antepartum: Status: Acute Code(s): O09.899 - Supervision of other high risk pregnancies, unspecified trimester (6) Obesity affecting : Status: Acute Qualifiers: Trimester: first trimester Obesity type affecting : severe obesity due to excess calories Qualified Code(s): O99.211 - Obesity c omplicating , first trimester; E66.01 - Morbid (severe) obesity due to excess calories Code(s): O99.210 - Obesity complicating , unspecified trimester (7) Hypertension: Status: Acute Qualifiers: Hypertension type: unspecified secondary hypertension Qualified Code(s): I15.9 - Secondary hypertension, unspecified Code(s): I10 - Essential (primary) hypertension (8) Elderly multigravida, currently : Status: Acute Code(s): O09.529 - Supervision of elderly multigravida, unspecified trimester (9) Hypothyroid in , antepartum: Status: Acute Code(s): O99.280 - Endocrine, nutritional and metabolic diseases complicating , unspecified trimester; E03.9 - Hypothyroidism, unspecified (10) Vaginal bleeding during : Status: Acute Code(s): O46.90 - Antepartum hemorrhage, unspecified, unspecified trimester Coding Level of Care Code Acute Code for Chg Fwd Diagnoses 26 weeks gestation of Z3A.26 Advanced maternal age (AMA) in Abnormal glucose tolerance affecting , antepartum O99.810 Abnormal genetic test during O28.5 Supervision of other high risk , antepartum O09.899 Severe obesity due to excess calories affecting in first trimester O99.211; E66.01 Trimester: first trimester Obesity type affecting : severe obesity due to excess calories Secondary hypertension I15.9 Hypertension type: unspecified secondary hypertension Elderly multigravida, currently O09.529 Hypothyroid in , antepartum O99.280; E03.9 Vaginal bleeding during O46.90
[2024-01-09 17:58] LABS: Add Urine Culture? No; Urine Color Orange (Yellow)
[2024-01-09 18:06] VITALS: BP 115/75; PULSE 80
== END 2024-01-09 18:32 | disposition home or self-care (01) ==
LOC: OPOB 15:29 → OBGYN 15:30
PROVIDERS: PCP Family Medicine; Visit Provider Obstetrics & Gynecology
DX: O46.90 Antepartum hemorrhage, unspecified, unspecified trimester (principal); Z3A.26 26 weeks gestation of pregnancy; O99.810 Abnormal glucose complicating pregnancy; O28.5 Abnormal chromosomal and genetic finding on antenatal screening of mother; O09.899 Supervision of other high risk pregnancies, unspecified trimester; O99.211 Obesity complicating pregnancy, first trimester; I15.9 Secondary hypertension, unspecified; O09.529 Supervision of elderly multigravida, unspecified trimester; O99.280 Endocrine, nutritional and metabolic diseases complicating pregnancy, unspecified trimester; E03.9 Hypothyroidism, unspecified
CPT/HCPCS: 36415; 76819; 81001; 99211

== ENCOUNTER → 2024-01-25 08:43 | Outpatient (BNVA) | payer BC, MEDICAID, SELFPAY | PROVIDERS: PCP Family Medicine; Visit Provider Obstetrics & Gynecology | DX: O09.891 Supervision of other high risk pregnancies, first trimester (principal) | CPT/HCPCS: 84315; 85025 ==

== ENCOUNTER → 2024-02-03 07:53 | Outpatient (BNVA) | payer BC, MEDICAID, SELFPAY | PROVIDERS: PCP Family Medicine; Visit Provider Nurse Practitioner Women's Health | DX: O99.280 Endocrine, nutritional and metabolic diseases complicating pregnancy, unspecified trimester (principal); O09.899 Supervision of other high risk pregnancies, unspecified trimester; E03.9 Hypothyroidism, unspecified; I15.9 Secondary hypertension, unspecified | CPT/HCPCS: 80053; 82570; 84156; 84315; 84443; 87086 ==

== ENCOUNTER → 2024-02-14 09:24 | Outpatient (BNVA) | payer BC, MEDICAID, SELFPAY | PROVIDERS: PCP Family Medicine; Visit Provider Nurse Practitioner Women's Health | DX: O09.893 Supervision of other high risk pregnancies, third trimester (principal) | CPT/HCPCS: 76816 ==

== ENCOUNTER 2024-02-17 08:30 | Outpatient (CLI) | payer BC, MEDICAID, SELFPAY ==
[2024-02-17 09:02] LABS: Total Volume, Urine 2000 mL
[2024-02-17 09:53] LABS: Urine Total Protein 6.8 mg/dL (0-150)
== END 2024-02-17 08:31 | disposition home or self-care (01) ==
LOC: LAB 08:32
PROVIDERS: PCP Family Medicine; Visit Provider Nurse Practitioner Women's Health
DX: O09.893 Supervision of other high risk pregnancies, third trimester (principal); I15.9 Secondary hypertension, unspecified; D50.9 Iron deficiency anemia, unspecified
CPT/HCPCS: 84156; 84315; 85025

== ENCOUNTER 2024-03-06 15:30 | Outpatient (CLI) | payer BC, MEDICAID, SELFPAY ==
[2024-03-06] VITALS (7 sets, daily range): BP systolic 119–138; BP diastolic 73–90; PULSE 86–92; RESP 16; BMI 36.6
== END 2024-03-06 16:41 | disposition home or self-care (01) ==
LOC: OPOB 15:33 → OBGYN 15:34
PROVIDERS: PCP Family Medicine; Visit Provider Obstetrics & Gynecology
DX: O16.9 Unspecified maternal hypertension, unspecified trimester (principal); Z3A.00 Weeks of gestation of pregnancy not specified
CPT/HCPCS: 59025; 84315

== ENCOUNTER → 2024-03-12 10:20 | Outpatient (BNVA) | payer BC, MEDICAID, SELFPAY | PROVIDERS: PCP Family Medicine; Visit Provider Nurse Practitioner Women's Health | DX: O26.893 Other specified pregnancy related conditions, third trimester (principal); Z3A.36 36 weeks gestation of pregnancy | CPT/HCPCS: 76816 ==

== ENCOUNTER 2024-03-16 08:56 | Outpatient (CLI) | payer BC, MEDICAID, SELFPAY ==
[2024-03-16 09:06] VITALS: BMI 37.0
[2024-03-16 09:07] VITALS: BP 160/104; PULSE 91
[2024-03-16 09:08] VITALS: BP 151/100; PULSE 88
[2024-03-16 09:22] VITALS: BP 129/73; PULSE 104
[2024-03-16 09:37] VITALS: BP 122/75; PULSE 94
[2024-03-16 09:52] VITALS: BP 111/68; PULSE 105
[2024-03-16 10:07] VITALS: BP 123/81; PULSE 100
== END 2024-03-16 10:17 | disposition home or self-care (01) ==
LOC: OPOB 08:56 → OBGYN 08:57
PROVIDERS: PCP Family Medicine; Visit Provider Obstetrics & Gynecology
DX: O09.519 Supervision of elderly primigravida, unspecified trimester (principal); Z3A.00 Weeks of gestation of pregnancy not specified
CPT/HCPCS: 59025

== ENCOUNTER → 2024-03-19 14:25 | Outpatient (BNVA) | payer BC, MEDICAID, SELFPAY | PROVIDERS: PCP Family Medicine; Visit Provider Obstetrics & Gynecology | DX: O40.3XX0 Polyhydramnios, third trimester, not applicable or unspecified (principal); O09.899 Supervision of other high risk pregnancies, unspecified trimester; Z3A.36 36 weeks gestation of pregnancy | CPT/HCPCS: 84315; 87081 ==

== ENCOUNTER 2024-03-20 16:14 | Outpatient (CLI) | payer BC, MEDICAID, SELFPAY ==
[2024-03-20] VITALS (14 sets, daily range): BP systolic 132–159; BP diastolic 85–104; PULSE 82–98; RESP 15; BMI 37.5
[2024-03-20 17:07] LABS: Basophils % 0.1 %; Eosinophils % 0.5 %; Hematocrit 39.9 % (36-47); Lymphocytes # 2.2 10^3/uL (0.8-4.8); Lymphocytes % 26.1 %; Mean Corpuscular HGB Conc 31.8 g/dL (30-55); Mean Corpuscular Hemoglobin 29.3 pg (27-33); Mean Corpuscular Volume 91.9 fl (85-98); Mean Platelet Volume 10.4 fL (7.4-10.4); Monocytes # 0.4 10^3/uL (0.2-0.9); Monocytes % 4.4 %; Neutrophils # 5.87 10^3/uL (1.8-7.7); Neutrophils % 68.5 %; Nucleated Red Blood Cells % 0 %; Platelet Count 242 10^3/cmm (157-399); Red Blood Count 4.34 10^6/uL (3.85-5.65); Red Cell Distribution Width 13.6 % (12.1-15.1); White Blood Count 8.57 10^3/uL (3.29-11.43)
[2024-03-20 17:19] LABS: Bilirubin Urine Negative (Negative); Blood Urine Negative (Negative); Glucose Urine UA Negative (Normal); Ketones Urine Trace (Negative); Leukocyte Esterase Urine 1+ (Negative); Nitrate Urine Negative (Negative); Protein Urine Trace (Negative); Specific Gravity, Urine 1.028 (1.005-1.030); Urine Appearance Clear (CLEAR)
[2024-03-20 17:22] LABS: Alanine Aminotransferase < 5 U/L (0-33); Albumin Level 3.3 g/dL (3.5-5.2); Alkaline Phosphatase 136 U/L (35-105); Anion Gap 23.1 (5-19); Aspartate Amino Transferase 18 U/L (0-32); Blood Urea Nitrogen 6 mg/dL (6-20); Calcium 8.9 mg/dL (8.5-10.5); Carbon Dioxide 19 mmol/L (22-29); Chloride 102 mmol/L (98-107); Creatinine Clr Calc Pharmacy 242.0796; Globulin 3.7 g/dL (1.3-4.6); Glomerular Filtration Rate 178.6 mL/min (90-130); Glucose 105 mg/dL (65-115); Osmolality Calculated 288 mOsm/kg (285-295); Potassium 4.1 mmol/L (3.5-5.1); Sodium 140 mmol/L (136-145); Total Bilirubin 0.4 mg/dL (0.15-1.2); Uric Acid 5.1 mg/dL (2.4-5.7)
[2024-03-20 17:28] LABS: Add Urine Microscopic? YES; Bacteria Urine 2+ /hpf; Hyaline Casts Urine 1.65 /lpf; WBC Urine 21-50 /hpf (0-5)
[2024-03-20 17:30] LABS: Urine Color Orange (Yellow)
[2024-03-20 17:31] LABS: Add Urine Culture? Yes
[2024-03-20] MEDS: NIFEdipine ER (24 hr) 30 mg Tablet PO (18:02)
[2024-03-20 18:15] LABS: Urine Creatinine 231 mg/dL (28-217)
[2024-03-20 18:17] LABS: UPRO/UCREAT Ratio 0.11 mg/mg CR; Urine Protein Random 26 mg/dL
[2024-03-20] MEDS: terbutaline 1 mg/mL INJ 0.25 MG SUBCUT (19:20)
== END 2024-03-20 20:06 | disposition home or self-care (01) ==
LOC: OPOB 16:14 → OBGYN 16:15
PROVIDERS: Obstetrics & Gynecology; PCP Family Medicine; Visit Provider Obstetrics & Gynecology
DX: O09.519 Supervision of elderly primigravida, unspecified trimester (principal); Z3A.00 Weeks of gestation of pregnancy not specified
CPT/HCPCS: 36415; 59025; 80053; 81001; 82570; 84156; 84550; 85025; 96372; 99211; J3105

== ENCOUNTER → 2024-03-21 11:18 | Outpatient (BNVA) | payer BC, MEDICAID, SELFPAY | PROVIDERS: PCP Family Medicine; Visit Provider Nurse Practitioner Women's Health | DX: O16.9 Unspecified maternal hypertension, unspecified trimester (principal); Z3A.00 Weeks of gestation of pregnancy not specified | CPT/HCPCS: 76819 ==

== ENCOUNTER 2024-03-23 15:00 | Outpatient (CLI) | payer BC, MEDICAID, SELFPAY ==
[2024-03-23 15:12] VITALS: BP 133/96; PULSE 83
[2024-03-23 15:21] VITALS: RESP 18; BMI 38.2
[2024-03-23 15:27] VITALS: BP 141/86; PULSE 81
== END 2024-03-23 15:40 | disposition home or self-care (01) ==
LOC: OPOB 15:07 → OBGYN 15:08
PROVIDERS: PCP Family Medicine; Visit Provider Obstetrics & Gynecology
DX: O16.9 Unspecified maternal hypertension, unspecified trimester (principal); O09.511 Supervision of elderly primigravida, first trimester; Z3A.00 Weeks of gestation of pregnancy not specified
CPT/HCPCS: 59025

== ENCOUNTER → 2024-03-27 08:35 | Outpatient (BNVA) | payer BC, MEDICAID, SELFPAY | PROVIDERS: PCP Family Medicine; Visit Provider Nurse Practitioner Women's Health | DX: O16.9 Unspecified maternal hypertension, unspecified trimester (principal); O40.9XX0 Polyhydramnios, unspecified trimester, not applicable or unspecified | CPT/HCPCS: 76819 ==

== ENCOUNTER 2024-03-29 10:10 | Outpatient (CLI) | payer BC, MEDICAID, SELFPAY ==
--- NOTE | 2024-03-29 10:16 | US_ITS ---
WS: [id number] BIOPHYSICAL PROFILE AMNIOTIC FLUID HISTORY: hypertension COMPARISON: 03/27/2024 position: Vertex. Cardiac activity: 159 bpm. Cervix: closed. Placenta: Anterior, no previa or abruption. There is few small placental lakes. Placenta grade: 3 Parameters are as follows: Breathin Movement: 2 Tone: 2 Fluid volume: 2 Amniotic Fluid Index: 15.0 US/US OB BPP wo NST 76040 IMPRESSION: 1. Biophysical profile score: 8/8. 2. Normal amniotic fluid index. 3. Anterior grade 3 placenta.
[2024-03-29 10:17] VITALS: BMI 36.6
[2024-03-29 10:18] VITALS: RESP 18
[2024-03-29 10:19] VITALS: BP 143/103; PULSE 96
[2024-03-29 10:40] VITALS: BP 140/96; PULSE 96
[2024-03-29 10:40] LABS: Bilirubin Urine Negative (Negative); Blood Urine Negative (Negative); Glucose Urine UA Negative (Normal); Ketones Urine Negative (Negative); Leukocyte Esterase Urine 2+ (Negative); Nitrate Urine Negative (Negative); Protein Urine Negative (Negative); Specific Gravity, Urine 1.016 (1.005-1.030); Urine Appearance Clear (CLEAR); Urine Color Yellow (Yellow); pH Urine 7.5 (5-7)
[2024-03-29 10:42] LABS: Add Urine Microscopic? YES; Bacteria Urine None Seen /hpf; Hyaline Casts Urine 2.05 /lpf; RBC Urine 0-2 /hpf (0-2)
[2024-03-29 10:45] LABS: Basophils % 0.2 %; Eosinophils % 0.4 %; Hematocrit 38.8 % (36-47); Lymphocytes # 2.2 10^3/uL (0.8-4.8); Lymphocytes % 27.1 %; Mean Corpuscular HGB Conc 32.7 g/dL (30-55); Mean Corpuscular Volume 91.5 fl (85-98); Mean Platelet Volume 10.3 fL (7.4-10.4); Monocytes # 0.4 10^3/uL (0.2-0.9); Monocytes % 4.3 %; Neutrophils # 5.52 10^3/uL (1.8-7.7); Neutrophils % 67.4 %; Nucleated Red Blood Cells % 0 %; Platelet Count 263 10^3/cmm (157-399); Red Blood Count 4.24 10^6/uL (3.85-5.65); Red Cell Distribution Width 13.6 % (12.1-15.1); White Blood Count 8.19 10^3/uL (3.29-11.43)
[2024-03-29 10:57] LABS: Alanine Aminotransferase < 5 U/L (0-33); Albumin Level 2.9 g/dL (3.5-5.2); Alkaline Phosphatase 161 U/L (35-105); Anion Gap 15.9 (5-19); Blood Urea Nitrogen 5 mg/dL (6-20); Calcium 8.7 mg/dL (8.5-10.5); Carbon Dioxide 19 mmol/L (22-29); Chloride 103 mmol/L (98-107); Creatinine Clr Calc Pharmacy 191.2612; Globulin 3.9 g/dL (1.3-4.6); Glomerular Filtration Rate 138.1 mL/min (90-130); Glucose 96 mg/dL (65-115); Osmolality Calculated 275 mOsm/kg (285-295); Potassium 3.9 mmol/L (3.5-5.1); Sodium 134 mmol/L (136-145); Total Bilirubin 0.3 mg/dL (0.15-1.2); Total Protein 6.8 g/dL (6.6-8.7); Uric Acid 4.7 mg/dL (2.4-5.7)
[2024-03-29 10:59] VITALS: BP 141/90; PULSE 86
[2024-03-29 11:00] LABS: Urine Creatinine 114 mg/dL (28-217); Urine Protein Random 16 mg/dL
[2024-03-29 11:01] LABS: UPRO/UCREAT Ratio 0.14 mg/mg CR
[2024-03-29 11:06] LABS: Aspartate Amino Transferase 5 U/L (0-32)
[2024-03-29 11:19] VITALS: BP 133/90; PULSE 88
--- NOTE | 2024-03-29 11:36 | PC.NURSE ---
Called prescription to Alberto at [facility] at this time.
== END 2024-03-29 11:38 | disposition home or self-care (01) ==
LOC: OPOB 10:14 → OBGYN 10:15
PROVIDERS: PCP Family Medicine; Visit Provider Obstetrics & Gynecology
DX: O16.9 Unspecified maternal hypertension, unspecified trimester (principal); Z3A.00 Weeks of gestation of pregnancy not specified; O09.519 Supervision of elderly primigravida, unspecified trimester
CPT/HCPCS: 36415; 59025; 76819; 80053; 81001; 82570; 84156; 84315; 84550; 85025; 99211

== ENCOUNTER 2024-03-30 21:41 | Inpatient (IN) | payer BC, MEDICAID, SELFPAY ==
[2024-03-30] VITALS (29 sets, daily range): BP systolic 69–166; BP diastolic 43–104; PULSE 65–109; O2SAT 97–100; BMI 37.0
[2024-03-30 20:37] LABS: Bilirubin Urine Negative (Negative); Blood Urine Negative (Negative); Glucose Urine UA Negative (Normal); Ketones Urine Negative (Negative); Leukocyte Esterase Urine 3+ (Negative); Nitrate Urine Negative (Negative); Protein Urine Negative (Negative); Urine Appearance Cloudy (CLEAR); Urobilinogen Urine 0.2 mg/dL (Negative); pH Urine 7.5 (5-7)
[2024-03-30 20:38] LABS: Urine Color Orange (Yellow)
[2024-03-30 20:40] LABS: Bacteria Urine 4+ /hpf; Hyaline Casts Urine 1.65 /lpf; RBC Urine 0-2 /hpf (0-2); Universal Test for UA Present (0); WBC Urine 51-100 /hpf (0-5)
[2024-03-30 20:51] LABS: Squamous Epithelial Cell Urine 25-40 /hpf (0-5)
[2024-03-30 20:52] LABS: Add Urine Culture? No; Sperm Urine 1+ /hpf
[2024-03-30 21:42] LABS: Basophils % 0.2 %; Eosinophils # 0.1 10^3/uL (0.0-0.8); Eosinophils % 0.4 %; Hematocrit 41.6 % (36-47); Lymphocytes # 3.3 10^3/uL (0.8-4.8); Lymphocytes % 29.1 %; Mean Corpuscular HGB Conc 32.2 g/dL (30-55); Mean Corpuscular Hemoglobin 29.2 pg (27-33); Mean Corpuscular Volume 90.6 fl (85-98); Mean Platelet Volume 10.6 fL (7.4-10.4); Monocytes # 0.5 10^3/uL (0.2-0.9); Neutrophils # 7.34 10^3/uL (1.8-7.7); Neutrophils % 65.9 %; Nucleated Red Blood Cells % 0 %; Platelet Count 298 10^3/cmm (157-399); Red Blood Count 4.59 10^6/uL (3.85-5.65); Red Cell Distribution Width 13.5 % (12.1-15.1); White Blood Count 11.16 10^3/uL (3.29-11.43)
[2024-03-30] MEDS: lactated ringers 1,000 ML 999 ML IV ×2 (22:00→23:55)
[2024-03-30] MEDS: ampicillin 2,000 MG in sodium chloride 0.9% (plus) 50 ML 100 MG IV (22:00)
[2024-03-30] MEDS: dextrose 5%-sod chloride 0.45% 1,000 ML 125 ML IV (23:03)
[2024-03-30] MEDS: ROPivacaine syringe 100 MG/50 ML SYRINGE 10 MG EPIDURAL (23:30)
--- NOTE | 2024-03-30 23:32 | P.ANESASSM_ITS ---
Pre-Anesthetic Assessment Height/Weight: Height 1.7 m Weight 107.501 kg Pulse BP Pulse Ox 94 126/87 99 03/30/24 23:30 03/30/24 23:30 03/30/24 23:30 Preop Diagnosis: labor pain epidural Familial anesthetic complications: none Was Beta Maria R taken within 24 hours: N/A Was Clonidine taken within 24 hours: N/A Last Intake: 12:00 Social No alcohol and No tobacco Exam alert and oriented x 3 Airway Submandibular: within normal limits Cervical ROM: within normal limits Mallampati: Class II Dentition: full History/ROS No significant history except as noted Pulmonary None reported CV/HEM None reported None reported Hepatic None reported GI None reported Metabolic Morbid Obesity and Thyroid Disease [facility] None reported Neuropsych Depression Anesthetic Plan ASA status: 3 Anesthesia: Anesthesia Evaluation and Regional (specify below) Medications/Allergies Home Medications Medication Instructions Recorded Confirmed Last Taken Type docosahexaenoic acid 200 mg 200 mg PO DAILY 09/14/23 03/30/24 03/30/24 History capsule ( DHA) levothyroxine 75 mcg tablet 75 mcg PO DAILY #60 tabs 02/07/24 03/30/24 03/30/24 Rx venlafaxine 225 mg tablet,extended 225 mg PO DAILY #90 tabs 02/14/24 03/30/24 03/30/24 Rx release 24 hr Allergies Allergy/AdvReac Type Severity Reaction Status Date / Time No Known Allergies Allergy Verified 03/30/24 20:18 Current Medications Generic Name Dose Route Start Last Admin Trade Name Freq PRN Reason Stop Dose Admin Dextrose/Sodium Chloride 1,000 mls @ 125 mls/hr 03/30/24 21:15 03/30/24 23:03 Dextrose 5%-Sod Chloride 0.45% IV 125 mls/hr .Q8H CEDRIC Administration Lactated Ringer's 1,000 mls @ 999 mls/hr 03/30/24 21:07 03/30/24 22:00 Lactated Ringers IV 999 mls/hr .Q1H1M PRN Administration Per L&D Rescitation Protocol [facility] Anesthesia Medical History No pertinent past medical history neghx: dm,thyroid,dvt/pe PCP: Dr. Harris Hypertension Surgical History History of cholecystectomy History of colonoscopy (~08/2021) History of esophagogastroduodenoscopy (~08/2021) Family History Mother Hypertension Denies family history of Colon cancer Ovarian cancer Prostate cancer Diabetes Heart disease Hyperlipidemia Breast cancer Uterine cancer Thyroid disease Stroke Social History Smoking and tobacco/nicotine status: former use of tobacco/nicotine Female Reproductive History : 4 Data Anesthesia 03/30/24 21:30 Short CBC 03/30/24 Range/Units 21:30 WBC 11.16 (3.29-11.43) 10^3/uL Hgb 13.40 (11.27-16.99) g/dL Hct 41.6 (36-47) % MCV 90.6 (85-98) fl Plt Count 298 (157-399) 10^3/cmm Neut % (Auto) 65.9 % Neut # (Auto) 7.34 (1.8-7.7) 10^3/uL Urine 03/30/24 Range/Units 20:24 Urine Color [place] A (Yellow) Urine Appearance Cloudy A (CLEAR) Urine pH 7.5 (5-7) Ur Specific [place] 1.010 (1.005-1.030) Urine Protein Negative (Negative) Urine Glucose (UA) Negative (Normal) Urine Ketones Negative (Negative) Urine Nitrate Negative (Negative) Urine Bilirubin Negative (Negative) Ur Leukocyte Esterase 3+ A (Negative) Urine RBC 0-2 (0-2) /hpf Urine WBC 51-100 H (0-5) /hpf Blood Bank 03/30/24 21:30 Blood Type A Positive Rho(D) Type Rh positive Antibody Screen Negative Cardiac Studies: 2 No Data to Display
--- NOTE | 2024-03-30 23:34 | ANES.PROC ---
Anesthesia Procedures Procedure/Date: 03/30/24 Epidural: Time Out Performed: Yes Consents Signed: Procedure Consent Consent: from patient, risks and benefits reviewed and patient agrees to proceed Lumbar Level: L3-L4 Epidural position: sitting Epidural procedure: sterile prep of area, 1% lidocaine to numb the area, 18 g needle, negative for paresthesia passed, neg for paresthesia, test dose given, 1.5% xylocaine 1:200k epi, placed PCEA, no systemic response, sterile dressing applied, L.U.D. no apparent complications and 0.2% Ropiavacaine @ mls/hr (10) Additional Comments: SHAKA at 6. first attempt, heme return upon aspiration. second attempt negative CSF/heme upon aspiration. tolerated well. pt states relief of sharp contraction pain.
[2024-03-30] MEDS: ePHEDrine 50 mg/mL Inj 10 MG IVP (23:52)
[2024-03-31] VITALS (182 sets, daily range): BP systolic 81–150; BP diastolic 50–102; PULSE 85–133; RESP 16; TEMP 35.8–36.8; O2SAT 77–100
[2024-03-31] MEDS: ampicillin 1,000 MG in sodium chloride 0.9% (plus) 50 ML 100 MG IV ×6 (01:56→23:10)
[2024-03-31] MEDS: ROPivacaine syringe 100 MG/50 ML SYRINGE 10 MG EPIDURAL ×6 (03:17→23:12)
[2024-03-31] MEDS: lactated ringers 1,000 ML 999 ML IV (04:20)
[2024-03-31] MEDS: ePHEDrine 50 mg/mL Inj 10 MG IVP ×4 (04:36→05:34)
--- NOTE | 2024-03-31 04:38 | ANES.PROC ---
Anesthesia Procedures Procedure/Date: 03/31/24 Epidural: Time Out Performed: Yes Consents Signed: Procedure Consent Consent: from patient, risks and benefits reviewed and patient agrees to proceed Lumbar Level: L3-L4 Epidural position: sitting Epidural procedure: sterile prep of area, 1% lidocaine to numb the area, 18 g needle, negative for paresthesia passed, neg for paresthesia, test dose given, 1.5% xylocaine 1:200k epi, placed PCEA, no systemic response, sterile dressing applied, L.U.D. no apparent complications and 0.2% Ropiavacaine @ mls/hr (10) Additional Comments: PA[employer] SERVICES ANALYST called to bedside due to catheter dislodgement. SHAKA at 5.5, negative CSF/heme upon aspiration. taped at 12 at skin. pt tolerated well.
[2024-03-31] MEDS: oxytocin 30 UNIT/500 ML BAG IV (09:46)
--- NOTE | 2024-03-31 12:05 | PM.OBGYHP ---
Providers/Chief Complaint Admitting Physician: Jason Serna MD Primary ACCOUNTANT CLERK: Dayton Morris MD Primary Care Provider: Karl Harris DO Chief Complaint: Contractions HPI ACCOUNTANT CLERK History of Present Illness Patient was admitted on March 30, 2024 at 2050 38 y.o. EDC April 13, 2024 At 37 w 5 d Presents to L&D c/o painful uterine contractions No bleeding / fluid leakage + active movements h/o chronic hypertension, on amlodipine BPs have bee normal No headaches, blurry vision, swelling h/o x three Present Details : 4 Para: 3 Medications/Allergies Home Medications Medication Instructions Recorded Confirmed Last Taken Type docosahexaenoic acid 200 mg 200 mg PO DAILY 09/14/23 03/30/24 03/30/24 History capsule ( DHA) levothyroxine 75 mcg tablet 75 mcg PO DAILY #60 tabs 02/07/24 03/30/24 03/30/24 Rx venlafaxine 225 mg tablet,extended 225 mg PO DAILY #90 tabs 02/14/24 03/30/24 03/30/24 Rx release 24 hr Allergies Allergy/AdvReac Type Severity Reaction Status Date / Time No Known Allergies Allergy Verified 03/30/24 20:18 PFSH ACCOUNTANT CLERK PFSH: Medical History No pertinent past medical history neghx: dm,thyroid,dvt/pe PCP: Dr. Harris Hypertension Surgical History History of cholecystectomy History of colonoscopy (~08/2021) History of esophagogastroduodenoscopy (~08/2021) Family History Mother Hypertension Denies family history of Colon cancer Ovarian cancer Prostate cancer Diabetes Heart disease Hyperlipidemia Breast cancer Uterine cancer Thyroid disease Stroke Social History Smoking and tobacco/nicotine status: former use of tobacco/nicotine History History History 4 Term 3 0 Miscarriages/Ectopic 0 Living Children 3 Care JESSICA Calculator Estimated Delivery Date Method Current WG Current Estimate 04/13/24 Ultrasound #1 38w 3d Other Estimates 05/02/24 LMP (Uncertain) 35w 5d Specific Issues/Plans CHRONIC HTN; stopped all meds; 24 hr urine after neg urine culture BREECH and suspected POLYHYDRAMNIOS; growth and VIVIENNE at 32, 36wks HYPOTHYROIDISM;started levo 25mc at 10wks; reasses at 30wks ELDERLY; 37 at time of delivery Abnormal NIPT--see mfm; normal eval; cont to monitor OBESITY;early GCT failed; 3 hour pass; rpt 3 hour at 24wk-passed ANXIETY/DEPRESSION;managed with effexor ABNORMAL GCT; 3 hour with one elevated level Vitals/I&O/Wt Last Vital Signs Temp 95.4 F L 04/01/24 21:15 Pulse 78 04/01/24 21:15 Resp 16 03/31/24 03:19 BP 139/90 04/01/24 21:15 Pulse Ox 77 L 03/31/24 05:43 Physical Exam Narrative: Weight 237 lbs; 5?7? BP 158 / 92 General comfortable, awake, alert Lungs: clear Cor: RRR Abd: soft. FH 38 cm Cervix: 3 cm / 50 / -3 / posterior Ext: no edema External monitor: heart tracing good variability, + accelerations Ob sono 03-12-24 cephalic, 36 w 4 d GBS 03-19-24 + Urinary Catheter Management: Augustine: Cath Placed During This Visit: yes, but has since been removed by the nurse Reason for Continuing Indwelling Catheter: Other Urinary Catheter Date of Insertion: 03/30/24 Urinary Catheter Time of Insertion: 23:52 Date Urinary Catheter Removed: 03/31/24 Time Urinary Catheter Discontinued: 23:43 Data 04/01/24 12:05 Results Labs OB ([facility]): Obstetrics US 03/12/24 Obstetrics US/Biophysical Profile 03/29/24 Blood Type A Positive 03/30/24 Antibody Screen Negative 03/30/24 Hct 32.8 % (36-47) L 04/01/24 Hgb 10.40 g/dL (11.27-16.99) L 04/01/24 Rho(D) Type Rh positive 03/30/24 Plt Count 206 10^3/cmm (157-399) 04/01/24 Hep Bs Antigen Non-reactive (Nonreactive) 09/27/23 Hepatitis C Antibody Non-reactive (Nonreactive) 09/27/23 Rubella IgG Antibody 44.9 IU/mL (0.0-10.0) H 09/27/23 RPR Nonreactive (Nonreactive) 09/27/23 HIV 1&2 Ab & HIV 1 Ag Non-reactive (Non-Reactiv) 09/27/23 TSH 3.09 uIU/mL (0.27-4.20) 02/03/24 Free T4 0.85 ng/dL (0.82-1.77) 09/14/23 C.trachomatis RNA (TMA) Not detected (NOT DETECTED) 09/30/23 N.gonorrhoeae RNA (TMA) Not detected (NOT DETECTED) 09/30/23 T. vaginalis Amp RNA Not detected (NOT DETECTED) 09/30/23 Chlamydia/GC Comment See note 09/30/23 Cystic Fibrosis Screen C! medium chain acyl 09/27/23 Glucose 1 Hr 50 gm 149 mg/dL (85-140) H 09/27/23 Gest Glucose Tolerance mg/dL 12/23/23 Hemoglobin A1c 4.8 % (4.0-6.0) 09/14/23 Uric Acid 4.7 mg/dL (2.4-5.7) 03/29/24 Ser , Semi-Qnt 57476.00 mIU/mL 09/14/23 HCG, Qual Positive (Negative) H 09/14/23 Urine Opiates Screen Negative ng/mL (Negative) 09/27/23 Ur Barbiturates Screen Negative ng/mL (Negative) 09/27/23 Ur Phencyclidine Scrn Negative ng/mL (Negative) 09/27/23 Ur Amphetamines Screen Negative ng/mL (Negative) 09/27/23 U Benzodiazepines Scrn Negative ng/mL (Negative) 09/27/23 Urine Cocaine Screen Negative ng/mL (Negative) 09/27/23 U Marijuana (THC) Screen Negative ng/mL (Negative) 09/27/23 Micro Urine Specimen 02/03/24 Pap Smear Interpret See note 09/30/23 A&P Assessment and plan (1) Active labor at term: 37 w 5 d Active labor Plan admit Expectant management h/o x two (2) Hypertension: h/o chronic hypertension, on amlodipine plan close monitoring of BPs Qualifiers: Hypertension type: unspecified secondary hypertension Qualified Code(s): I15.9 - Secondary hypertension, unspecified (3) Positive GBS test: Plan start IV Abx Attestations Medical Necessity Statement*: patient at 37 w 5 d, with active labor Coding Level of Care Code Acute Code for Chg Fwd Diagnoses Active labor at term Secondary hypertension I15.9 Hypertension type: unspecified secondary hypertension Positive GBS test B95.1 Time Spent (min) 60
--- NOTE | 2024-03-31 12:05 | P.PN_ITS ---
SOLAR POWER INSTALLER Subjective 2 Subjective: Interval history: This note was written on March 30, 2024, 2249 fetus reassuring having painful uterine contractions patient requests epidural Labor: Station: +2 Amniotic Membrane Status: Ruptured Monitor Mode: Palpation Contraction Pattern: Regular Vitals/I&O/Wt Last Vital Signs Temp 95.4 F L 04/01/24 21:15 Pulse 78 04/01/24 21:15 Resp 16 03/31/24 03:19 BP 139/90 04/01/24 21:15 Pulse Ox 77 L 03/31/24 05:43 Physical Exam 2 Urinary Catheter Management: Augustine: Cath Placed During This Visit: yes, but has since been removed by the nurse Reason for Continuing Indwelling Catheter: Other Urinary Catheter Date of Insertion: 03/30/24 Urinary Catheter Time of Insertion: 23:52 Date Urinary Catheter Removed: 03/31/24 Time Urinary Catheter Discontinued: 23:43 Data 04/01/24 12:05 A&P Assessment and plan (1) Active labor at term: Attestations 2 Medical Necessity Statement*: patient at 37 w 5 d with active labor Coding Level of Care Code Acute Code for Chg Fwd Diagnoses Active labor at term Time Spent (min) 15
--- NOTE | 2024-03-31 12:05 | P.PN_ITS ---
SOCIAL SCIENCE ANALYST Subjective 2 Subjective: Interval history: This note was written on March 30, 2024, 2355 Fetus reassuring Comfortable with epidural BP 103 / 70 Cervix: 5 cm / 50 / -3 / posterior Labor: Station: +2 Amniotic Membrane Status: Ruptured Monitor Mode: Palpation Contraction Pattern: Regular Vitals/I&O/Wt Last Vital Signs Temp 95.4 F L 04/01/24 21:15 Pulse 78 04/01/24 21:15 Resp 16 03/31/24 03:19 BP 139/90 04/01/24 21:15 Pulse Ox 77 L 03/31/24 05:43 Physical Exam 2 Urinary Catheter Management: Augustine: Cath Placed During This Visit: yes, but has since been removed by the nurse Reason for Continuing Indwelling Catheter: Other Urinary Catheter Date of Insertion: 03/30/24 Urinary Catheter Time of Insertion: 23:52 Date Urinary Catheter Removed: 03/31/24 Time Urinary Catheter Discontinued: 23:43 Data 04/01/24 12:05 A&P Assessment and plan (1) Active labor at term: Attestations 2 Medical Necessity Statement*: patient at 37 w 6 d, with active labor Coding Level of Care Code Acute Code for Chg Fwd Diagnoses Active labor at term Time Spent (min) 30
--- NOTE | 2024-03-31 12:10 | PM.OBGYPN ---
WINDOWS SYSTEMS ADMINISTRATOR Subjective Subjective: Interval history: This note was written on March 31, 2024, 0320 Fetus reassuring Comfortable with epidural Cervix: 6 cm / 50 / -3 / posterior Labor: Station: +2 Amniotic Membrane Status: Ruptured Monitor Mode: Palpation Contraction Pattern: Regular Vitals/I&O/Wt Last Vital Signs Temp 95.4 F L 04/01/24 21:15 Pulse 78 04/01/24 21:15 Resp 16 03/31/24 03:19 BP 139/90 04/01/24 21:15 Pulse Ox 77 L 03/31/24 05:43 Physical Exam Urinary Catheter Management: Augustine: Cath Placed During This Visit: yes, but has since been removed by the nurse Reason for Continuing Indwelling Catheter: Other Urinary Catheter Date of Insertion: 03/30/24 Urinary Catheter Time of Insertion: 23:52 Date Urinary Catheter Removed: 03/31/24 Time Urinary Catheter Discontinued: 23:43 Data 04/01/24 12:05 A&P Assessment and plan (1) Active labor at term: Attestations Medical Necessity Statement*: patient at 37 w 6 d, with active labor Coding Level of Care Code Acute Code for Chg Fwd Diagnoses Active labor at term Time Spent (min) 30
--- NOTE | 2024-03-31 17:05 | PM.OBGYPN ---
AIRCRAFT PNEUDRAULIC SYSTEMS MECHANIC Subjective Subjective: Interval history: Fetus reassuring Comfortable with epidural Cervix: 6-7 cm / Start Pitocin augmentation per protocol Labor: Station: +2 Amniotic Membrane Status: Ruptured Monitor Mode: Palpation Contraction Pattern: Regular Vitals/I&O/Wt Last Vital Signs Temp 95.4 F L 04/01/24 21:15 Pulse 78 04/01/24 21:15 Resp 16 03/31/24 03:19 BP 139/90 04/01/24 21:15 Pulse Ox 77 L 03/31/24 05:43 Physical Exam Urinary Catheter Management: Augustine: Cath Placed During This Visit: yes, but has since been removed by the nurse Reason for Continuing Indwelling Catheter: Other Urinary Catheter Date of Insertion: 03/30/24 Urinary Catheter Time of Insertion: 23:52 Date Urinary Catheter Removed: 03/31/24 Time Urinary Catheter Discontinued: 23:43 Data 04/01/24 12:05 A&P Assessment and plan (1) Active labor at term: Attestations Medical Necessity Statement*: patient at 37 w 6 d, with active labor Coding Level of Care Code Acute Code for Chg Fwd Diagnoses Active labor at term Time Spent (min) 30
[2024-03-31] MEDS: dextrose 5%-sod chloride 0.45% 1,000 ML 125 ML IV (19:07)
--- NOTE | 2024-03-31 20:15 | P.PN_ITS ---
PRODUCT OPERATIONS ASSOCIATE Subjective 2 Subjective: Interval history: Fetus reassuring Comfortable with epidural Cervix: 6-7 cm / 75% / -2 AROM blood-tinged clear fluid Labor: Station: +2 Amniotic Membrane Status: Ruptured Monitor Mode: Palpation Contraction Pattern: Regular Vitals/I&O/Wt Last Vital Signs Temp 95.4 F L 04/01/24 21:15 Pulse 78 04/01/24 21:15 Resp 16 03/31/24 03:19 BP 139/90 04/01/24 21:15 Pulse Ox 77 L 03/31/24 05:43 Physical Exam 2 Urinary Catheter Management: Augustine: Cath Placed During This Visit: yes, but has since been removed by the nurse Reason for Continuing Indwelling Catheter: Other Urinary Catheter Date of Insertion: 03/30/24 Urinary Catheter Time of Insertion: 23:52 Date Urinary Catheter Removed: 03/31/24 Time Urinary Catheter Discontinued: 23:43 Data 04/01/24 12:05 A&P Assessment and plan (1) Active labor at term: Attestations 2 Medical Necessity Statement*: patient at 37 w 6 d, with active labor Coding Level of Care Code Acute Code for Chg Fwd Diagnoses Active labor at term Time Spent (min) 30
--- NOTE | 2024-03-31 23:55 | PM.DELIVERY ---
Delivery Note: Date of delivery: March 31, 2024 Pre-delivery diagnoses: 37 w 5 d chronic hypertension active labor pitocin augmentation of labor Post-delivery diagnoses: 37 w 5 d chronic hypertension active labor pitocin augmentation of labor vaginal delivery retained placenta, required manual removal Procedure: pitocin augmentation of labor vaginal delivery retained placenta, required manual removal Op report anesthesia: Epidural Delivering Physician: Jason Serna MD Estimated blood loss (mL): 400 Findings: , vigorous Cord gases and blood obtained Placenta adherent to fundus Required manual removal Placenta appeared complete and intact, fibrous in appearance Uterus and fundus manually explored, no further tissue palpable No episiotomy / lacerations EBL: 400 cc Pre-Delivery Course: normal labor course Delivery: vaginal delivery Post-Delivery Status: good History History History 4 Term 3 0 Miscarriages/Ectopic 0 Living Children 3 A&P Assessment and plan (1) Vaginal delivery: Coding Level of Care Code Acute Code for Chg Fwd Diagnoses Vaginal delivery O80 Time Spent (min) 120
[2024-04-01] VITALS (11 sets, daily range): BP systolic 122–149; BP diastolic 69–90; PULSE 78–103; TEMP 35.2–35.8
[2024-04-01] MEDS: oxytocin 30 UNIT/500 ML BAG 600 UNIT IV (01:08)
[2024-04-01] MEDS: PRENATAL VIT NO.130/IRON/FOLIC 1 EACH TABLET PO (10:06)
[2024-04-01] MEDS: ibuprofen 800 mg tablet PO ×3 (10:06→21:14)
[2024-04-01] MEDS: docusate sodium 100 mg Capsule PO ×2 (10:07→18:12)
[2024-04-01 12:50] LABS: Hematocrit 32.8 % (36-47); Mean Corpuscular HGB Conc 31.7 g/dL (30-55); Mean Corpuscular Hemoglobin 29.6 pg (27-33); Mean Corpuscular Volume 93.4 fl (85-98); Mean Platelet Volume 10.5 fL (7.4-10.4); Platelet Count 206 10^3/cmm (157-399); Red Blood Count 3.51 10^6/uL (3.85-5.65); Red Cell Distribution Width 13.7 % (12.1-15.1); White Blood Count 9.78 10^3/uL (3.29-11.43)
--- NOTE | 2024-04-01 14:35 | PM.OBGYPN ---
CLASSROOM TECHNOLOGY COACH Subjective Subjective: Interval history: no c/o no headaches, dizziness, nausea, abdominal pain, bleeding normal lochia eating, voiding, ambulating well Labor: Station: +2 Amniotic Membrane Status: Ruptured Monitor Mode: Palpation Contraction Pattern: Regular Vitals/I&O/Wt Last Vital Signs Temp 95.4 F L 04/01/24 21:15 Pulse 78 04/01/24 21:15 Resp 16 03/31/24 03:19 BP 139/90 04/01/24 21:15 Pulse Ox 77 L 03/31/24 05:43 Physical Exam Narrative: afebrile, VS normal comfortable, awake, alert Abd: soft, nontender. fundus firm Ext: no edema; nontender Urinary Catheter Management: Augustine: Cath Placed During This Visit: yes, but has since been removed by the nurse Reason for Continuing Indwelling Catheter: Other Urinary Catheter Date of Insertion: 03/30/24 Urinary Catheter Time of Insertion: 23:52 Date Urinary Catheter Removed: 03/31/24 Time Urinary Catheter Discontinued: 23:43 Data 04/01/24 12:05 A&P Assessment and plan (1) Vaginal delivery: Attestations Medical Necessity Statement*: patient s/p vaginal delivery, for care Coding Level of Care Code Acute Code for Chg Fwd Diagnoses Vaginal delivery O80 Time Spent (min) 30
[2024-04-02] VITALS (7 sets, daily range): BP systolic 128–144; BP diastolic 83–92; PULSE 72–86; RESP 15–16; TEMP 35.4–36.7; O2SAT 98
--- NOTE | 2024-04-02 08:00 | ANE.PACU2 ---
Inpatient post-anesthesia follow up: Airway intact: Yes Vital signs: Temperature 98.0 F Pulse Rate 75 Respiratory Rate 16 Blood Pressure 131/83 Pulse Oximetry 98 Oxygen Delivery Me thod Oxygen Flow Rate Fraction of Inspir ed Oxygen Hydration adequate: Yes Nausea and vomiting: No Pain level: 1 Mental status: Baseline Epidural Start/End: Epidural Start Date: 03/30/24 Epidural Start Time: 22:56 Epidural End Date: 04/01/24 Epidural End Time: 01:30
[2024-04-02] MEDS: ibuprofen 800 mg tablet PO (09:41)
[2024-04-02] MEDS: docusate sodium 100 mg Capsule PO (09:42)
[2024-04-02] MEDS: PRENATAL VIT NO.130/IRON/FOLIC 1 EACH TABLET PO (09:42)
--- NOTE | 2024-04-02 13:02 | P.PN_ITS ---
UPLANDS DIVISION DIRECTOR Subjective 2 Subjective: Interval history: no c/o no bleeding, pain eating, voiding, ambulating well caring for without any problems Labor: Station: +2 Amniotic Membrane Status: Ruptured Monitor Mode: Palpation Contraction Pattern: Regular Vitals/I&O/Wt Last Vital Signs Temp 97.9 F 04/02/24 09:45 Pulse 86 04/02/24 09:43 Resp 15 04/02/24 09:45 BP 128/89 04/02/24 09:43 Pulse Ox 77 L 03/31/24 05:43 Physical Exam 2 Narrative: afebrile, VS normal comfortable, awake, alert Abd: soft, nontender. fundus firm Ext: no edema; nontender Urinary Catheter Management: Augustine: Cath Placed During This Visit: yes, but has since been removed by the nurse Reason for Continuing Indwelling Catheter: Other Urinary Catheter Date of Insertion: 03/30/24 Urinary Catheter Time of Insertion: 23:52 Date Urinary Catheter Removed: 03/31/24 Time Urinary Catheter Discontinued: 23:43 Data 04/01/24 12:05 A&P Assessment and plan (1) Vaginal delivery: PPD #2 ; manual removal of placenta; no episiotomy / lacerations doing well discharge to home today instructions and precautions given call/return if fever, chills, headache, blurry vision, nausea, vomiting, abdominal pain; vaginal bleeding or discharge; shortness of breath, chest pain, leg pains or swelling; inability to void, perineal pain or swelling; feelings of depression or mood changes; thoughts of suicide or harming others; inability to care for baby. f/u in 2 weeks for BP check or PRN Attestations 2 Medical Necessity Statement*: patient s/p vaginal delivery, plan discharge to home today Coding Level of Care Code Acute Code for Chg Fwd Diagnoses Vaginal delivery O80 Time Spent (min) 20
--- NOTE | 2024-04-02 13:05 | PM.OBGYDC ---
Discharge Providers CORPORATE WEBMASTER Date of Admission: 03/31/24 12:00 Date of Discharge: 04/02/24 Attending Provider at Admission: Jason Serna MD Attending Provider at Discharge: Jason Serna MD Consults: none Primary CORPORATE WEBMASTER: Dayton Morris MD Primary Care Provider: Karl Harris DO Diagnoses at Discharge Discharge Diagnosis (1) Vaginal delivery: Details from hospital stay: 38 y.o. h/o x three at 37 w 5 d admitted with active labor cervix was at 3 cm patient progressed had pitocin augmentation and artificial rupture of membranes progressed to vaginal delivery with delivery of active retained placenta required manual removal patient did well with no fever or bleeding or pain patient was discharged to home on the second day Status: Acute Reason for Visit Reason for Visit: Contractions Brief History: 38 y.o. h/o x three at 37 w 5 d admitted with active labor cervix was at 3 cm Hospital Course Hospital Course 38 y.o. h/o x three at 37 w 5 d admitted with active labor cervix was at 3 cm patient progressed had pitocin augmentation and artificial rupture of membranes progressed to vaginal delivery with delivery of active retained placenta required manual removal patient did well with no fever or bleeding or pain patient was discharged to home on the second day Information Peripartum Data: Infant Delivery Method: Vaginal Laceration description: None Episiotomy description: None complications: none Physical Exam Narrative: afebrile, VS normal comfortable, awake, alert Abd: soft, nontender. fundus firm Ext: no edema; nontender Urinary Catheter Management: Augustine: Cath Placed During This Visit: yes, but has since been removed by the nurse Reason for Continuing Indwelling Catheter: Other Urinary Catheter Date of Insertion: 03/30/24 Urinary Catheter Time of Insertion: 23:52 Date Urinary Catheter Removed: 03/31/24 Time Urinary Catheter Discontinued: 23:43 History History History 4 Term 3 0 Miscarriages/Ectopic 0 Living Children 3 Discharge Data Studies Completed and Pending Laboratory Results WBC 9.78 10^3/uL (3.29-11.43) 04/01/24 12:05 RBC 3.51 10^6/uL (3.85-5.65) L 04/01/24 12:05 Hgb 10.40 g/dL (11.27-16.99) L 04/01/24 12:05 Hct 32.8 % (36-47) L 04/01/24 12:05 MCV 93.4 fl (85-98) 04/01/24 12:05 MCH 29.6 pg (27-33) 04/01/24 12:05 MCHC 31.7 g/dL (30-55) 04/01/24 12:05 RDW 13.7 % (12.1-15.1) 04/01/24 12:05 Plt Count 206 10^3/cmm (157-399) 04/01/24 12:05 MPV 10.5 fL (7.4-10.4) H 04/01/24 12:05 Neut % (Auto) 65.9 % 03/30/24 21:30 Lymph % (Auto) 29.1 % 03/30/24 21:30 Leon % (Auto) 4.0 % 03/30/24 21:30 Eos % (Auto) 0.4 % 03/30/24 21:30 Baso % (Auto) 0.2 % 03/30/24 21:30 Neut # (Auto) 7.34 10^3/uL (1.8-7.7) 03/30/24 21:30 Lymph # (Auto) 3.3 10^3/uL (0.8-4.8) 03/30/24 21:30 Leon # (Auto) 0.5 10^3/uL (0.2-0.9) 03/30/24 21:30 Eos # (Auto) 0.1 10^3/uL (0.0-0.8) 03/30/24 21:30 Baso # (Auto) 0.0 10^3/uL (0.0-0.1) 03/30/24 21:30 Nucleated RBC % (auto) 0 % 03/30/24 21:30 Nucleated RBCs # 0.0 /100WBC 03/30/24 21:30 Urine Color [place] (Yellow) A 03/30/24 20:24 Urine Appearance Cloudy (CLEAR) A 03/30/24 20:24 Urine pH 7.5 (5-7) 03/30/24 20:24 Ur Specific [place] 1.010 (1.005-1.030) 03/30/24 20:24 Urine Protein Negative (Negative) 03/30/24 20:24 Urine Glucose (UA) Negative (Normal) 03/30/24 20:24 Urine Ketones Negative (Negative) 03/30/24 20:24 Urine Blood Negative (Negative) 03/30/24 20:24 Urine Nitrate Negative (Negative) 03/30/24 20:24 Urine Bilirubin Negative (Negative) 03/30/24 20:24 Urine Urobilinogen 0.2 mg/dL (Negative) 03/30/24 20:24 Ur Leukocyte Esterase 3+ (Negative) A 03/30/24 20:24 Urine RBC 0-2 /hpf (0-2) 03/30/24 20:24 Urine WBC 51-100 /hpf (0-5) H 03/30/24 20:24 Ur Squamous Epith Cells 25-40 /hpf (0-5) H 03/30/24 20:24 Amorphous Sediment Not Reportable 03/30/24 20:24 Urine Bacteria 4+ /hpf (NONE) H 03/30/24 20:24 Hyaline Casts 1.65 /lpf 03/30/24 20:24 Urine Sperm 1+ /hpf 03/30/24 20:24 Blood Type A Positive 03/30/24 21:30 Rho(D) Type Rh positive 03/30/24 21:30 Antibody Screen Negative 03/30/24 21:30 Procedures Performed pitocin augmentation of labor vaginal delivery manual removal of placenta Vitals Last Vital Signs Temp 97.9 F 04/02/24 09:45 Pulse 86 04/02/24 09:43 Resp 15 04/02/24 09:45 BP 128/89 04/02/24 09:43 Pulse Ox 77 L 03/31/24 05:43 Results Labs OB ([facility]): Obstetrics US 03/12/24 Obstetrics US/Biophysical Profile 03/29/24 Blood Type A Positive 03/30/24 Antibody Screen Negative 03/30/24 Hct 32.8 % (36-47) L 04/01/24 Hgb 10.40 g/dL (11.27-16.99) L 04/01/24 Rho(D) Type Rh positive 03/30/24 Plt Count 206 10^3/cmm (157-399) 04/01/24 Hep Bs Antigen Non-reactive (Nonreactive) 09/27/23 Hepatitis C Antibody Non-reactive (Nonreactive) 09/27/23 Rubella IgG Antibody 44.9 IU/mL (0.0-10.0) H 09/27/23 RPR Nonreactive (Nonreactive) 09/27/23 HIV 1&2 Ab & HIV 1 Ag Non-reactive (Non-Reactiv) 09/27/23 TSH 3.09 uIU/mL (0.27-4.20) 02/03/24 Free T4 0.85 ng/dL (0.82-1.77) 09/14/23 C.trachomatis RNA (TMA) Not detected (NOT DETECTED) 09/30/23 N.gonorrhoeae RNA (TMA) Not detected (NOT DETECTED) 09/30/23 T. vaginalis Amp RNA Not detected (NOT DETECTED) 09/30/23 Chlamydia/GC Comment See note 09/30/23 Cystic Fibrosis Screen C! medium chain acyl 09/27/23 Glucose 1 Hr 50 gm 149 mg/dL (85-140) H 09/27/23 Gest Glucose Tolerance mg/dL 12/23/23 Hemoglobin A1c 4.8 % (4.0-6.0) 09/14/23 Uric Acid 4.7 mg/dL (2.4-5.7) 03/29/24 Ser , Semi-Qnt 34903.00 mIU/mL 09/14/23 HCG, Qual Positive (Negative) H 09/14/23 Urine Opiates Screen Negative ng/mL (Negative) 09/27/23 Ur Barbiturates Screen Negative ng/mL (Negative) 09/27/23 Ur Phencyclidine Scrn Negative ng/mL (Negative) 09/27/23 Ur Amphetamines Screen Negative ng/mL (Negative) 09/27/23 U Benzodiazepines Scrn Negative ng/mL (Negative) 09/27/23 Urine Cocaine Screen Negative ng/mL (Negative) 09/27/23 U Marijuana (THC) Screen Negative ng/mL (Negative) 09/27/23 Micro Urine Specimen 02/03/24 Pap Smear Interpret See note 09/30/23 Discharge Plan Discharge Patient Disposition: Home Condition: Stable Prescriptions: Continued DHA 200 mg capsule 200 mg PO DAILY levothyroxine 75 mcg tablet 75 mcg PO DAILY Qty: 60 0RF venlafaxine 225 mg tablet extended release 24hr 225 mg PO DAILY Qty: 90 1RF Discharge Orders: Discharge Order (Routine); Ordered 04/02/24 Ordered By: Jason Serna Referrals: Dayton Morris MD [Physician] - 05/07/24 2:30 pm Discharge Diet: Usual diet Discharge Activity: Increase activity as tolerated Patient Instructions: Depression (DC), Opioid Safety (DC), Preeclampsia and Eclampsia After Delivery (GEN), Hemorrhage (DC), OB Discharge Report, OB Food/Drug Interaction Guide, Opioid Safety, OB Home Care, OB Vaginal Deliveries - [facility], Abnormal Bleeding Discharge Attestations CORPORATE WEBMASTER Time Spent in Discharge Care*: less than 30 min Coding Level of Care Code Acute Code for Chg Fwd Diagnoses Vaginal delivery O80 Time Spent (min) 20
== END 2024-04-02 14:20 | disposition home or self-care (01) | DRG 807 ==
LOC: OPOB 21:41 → OBGYN 23:52
PROVIDERS: Admitting Provider Obstetrics & Gynecology; PCP Family Medicine; Visit Provider Obstetrics & Gynecology
DX: O10.92 Unspecified pre-existing hypertension complicating childbirth (principal); Z37.0 Single live birth; Z3A.37 37 weeks gestation of pregnancy; O73.0 Retained placenta without hemorrhage; Z87.891 Personal history of nicotine dependence; O99.824 Streptococcus B carrier state complicating childbirth; O99.284 Endocrine, nutritional and metabolic diseases complicating childbirth; E03.9 Hypothyroidism, unspecified; O99.344 Other mental disorders complicating childbirth; F41.9 Anxiety disorder, unspecified; F32.A Depression, unspecified
CPT/HCPCS: 36415; 51702; 59025; 59409; 81001; 85025; 85027; 86850; 86900; 96374; 96376; 99211; G0378; J0290; J2590; J2795; J7120; J7799

== ENCOUNTER → 2025-03-12 09:45 | Outpatient (BNVA) | payer MEDICAID, SELFPAY | PROVIDERS: PCP Family Medicine; Visit Provider Nurse Practitioner Family | DX: Z86.2 Personal history of diseases of the blood and blood-forming organs and certain disorders involving the immune mechanism (principal); Z86.39 Personal history of other endocrine, nutritional and metabolic disease; M25.50 Pain in unspecified joint; R53.83 Other fatigue | CPT/HCPCS: 80053; 82306; 82607; 82728; 83550; 84439; 84443; 84480; 85025; 85651; 86140 ==

== ENCOUNTER 2025-03-18 13:30 | Outpatient (CLI) | payer MEDICAID, SELFPAY ==
--- NOTE | 2025-03-18 13:45 | US_ITS ---
WS: [id number] THYROID ULTRASOUND HISTORY: E04.9 - Nontoxic goiter, unspecified COMPARISON: None available. Right lobe: 2.4 cm x 2.3 cm x 7.1 cm (w x ap x l). Volume: 18.3 cm3. Enlarged gland without a discrete nodule. RIGHT linear fibrous septa. Micronodular pattern with increased vascularity. Left lobe: 2.0 cm x 1.5 cm x 6.4 cm (w x ap x l). Volume: 9.1 cm3. Enlarged thyroid with increased vascularity and linear fibrous septa. Hypoechoic nodule measures 1.2 x 0.8 x 1.2 cm in the superior pole. This is a well- circumscribed nodule with no increased vascularity or echogenic foci. Isthmus: 1.0 cm. US/US thyroid 80871 IMPRESSION: 1. 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 2. TI-RADS 4; LEFT thyroid nodule. Recommend follow-up ultrasound evaluation i n 1, 2, 3 and 5 years.
== END 2025-03-18 13:31 | disposition home or self-care (01) ==
LOC: RAD 13:33
PROVIDERS: PCP Nurse Practitioner Family; Visit Provider Nurse Practitioner Family
DX: E04.9 Nontoxic goiter, unspecified (principal); E03.9 Hypothyroidism, unspecified
CPT/HCPCS: 76536